=== PATIENT | male | born 1955 | race Caucasian/White ===

== ENCOUNTER → 2019-08-13 08:13 | Outpatient (CLI) | payer OTHER, SELFPAY ==
[2019-08-13 10:17] LABS: Hematocrit 46.3 % (40-54); Hemoglobin 15.7 g/dL (13.0-16.5); Mean Corp Hgb Conc 33.9 g/dL (32-36); Mean Corpuscular Hgb 31.4 pg (27.0-32.0); Mean Corpuscular Volume 92.6 fL (80-94); Mean Platelet Vol. 10.8 fl (6.2-12.0); Platelet Count 268 K/mm3 (150-450); RBC Distribution Width CV 12.2 % (11.6-14.6); RBC Distribution Width SD 41.2 fl (35.1-43.9); White Blood Count 7.2 K/mm3 (4.4-11.0)
[2019-08-13 10:35] LABS: AST(SGOT) 18 U/L (15-37); Alanine Aminotransfer ALT/SGPT 28 U/L (16-61); Albumin, Serum 4.2 g/dL (3.2-5.0); Alkaline Phosphatase 51 U/L (45-117); Anion Gap 8 (5-15); BUN 15 mg/dL (7-18); BUN/Creat Ratio 13.8 RATIO (10-20); Bilirubin, Direct 0.16 mg/dL (0.00-0.30); Calcium,Total 8.9 mg/dL (8.5-10.1); Chloride 101 mmol/L (98-107); Cholesterol 199 mg/dL (200); Creatinine, Serum 1.09 mg/dL (0.70-1.30); EST Glomerular Filtration Rate 72 mL/min (>60); Est Glom Filt Rate - Afr Amer 88 mL/min (>60); Globulin 3.3 g/dL (2.2-4.2); Glucose 101 mg/dL (74-106); High Density Lipoprotein 40 mg/dL; PSA,Total - Annual Screen 0.62 ng/mL (0.00-4.00); Potassium 3.9 mmol/L (3.5-5.1); Protein, Total 7.5 g/dL (6.4-8.2); Sodium Level 139 mmol/L (136-145); Triglycerides 220 mg/dL; Very Low Density Lipoprotein 44 mg/dL (5-40)
[2019-08-14 16:50] LABS: V-Zoster IgG (Immunity) 567 index (Immune >165)
== END ==
PROVIDERS: Family Provider Family Medicine; PCP Family Medicine; Referring Provider Family Medicine; Visit Provider Family Medicine
DX: Z00.00 Encounter for general adult medical examination without abnormal findings (principal); R63.5 Abnormal weight gain; Z13.220 Encounter for screening for lipoid disorders; Z13.1 Encounter for screening for diabetes mellitus; Z12.5 Encounter for screening for malignant neoplasm of prostate; Z78.9 Other specified health status
CPT/HCPCS: 36415; 80048; 80061; 80076; 84153; 84403; 85027; 86787; G0103

== ENCOUNTER → 2021-08-07 07:01 | Outpatient (CLI) | payer MEDICARE, OTHER, SELFPAY ==
[2021-08-07 09:56] LABS: Hemoglobin 15.4 g/dL (13.0-16.5); Mean Corpuscular Volume 91.5 fL (80-94); Mean Platelet Vol. 10.7 fl (6.2-12.0); Platelet Count 234 K/mm3 (150-450); RBC Distribution Width CV 11.9 % (11.6-14.6); RBC Distribution Width SD 40.6 fl (35.1-43.9); Red Blood Count 4.81 M/mm3 (4.6-6.2); White Blood Count 6.8 K/mm3 (4.4-11.0)
[2021-08-07 10:15] LABS: ALB/GLOB Ratio 1.2 RATIO (0.9-2.4); AST(SGOT) 17 U/L (15-37); Alanine Aminotransfer ALT/SGPT 22 U/L (16-61); Alkaline Phosphatase 51 U/L (45-117); Anion Gap 4 (5-15); BUN 17 mg/dL (7-18); BUN/Creat Ratio 16.5 RATIO (10-20); Calcium,Total 9.2 mg/dL (8.5-10.1); Chloride 104 mmol/L (98-107); Cholesterol 201 mg/dL (200); Creatinine, Serum 1.03 mg/dL (0.70-1.30); EST Glomerular Filtration Rate 77 mL/min (>60); Est Glom Filt Rate - Afr Amer 93 mL/min (>60); Globulin 3.4 g/dL (2.2-4.2); Glucose 96 mg/dL (74-106); High Density Lipoprotein 42 mg/dL; Magnesium 2.5 mg/dL (1.6-2.6); PSA,Total - Annual Screen 0.66 ng/mL (0.00-4.00); Potassium 3.8 mmol/L (3.5-5.1); Protein, Total 7.4 g/dL (6.4-8.2); Sodium Level 139 mmol/L (136-145); Thyroid Stim Hormone (TSH) 3.53 uIU/mL (0.358-3.74); Triglycerides 179 mg/dL; Very Low Density Lipoprotein 36 mg/dL (5-40); Vitamin B12 527 pg/mL (211-911); Vitamin D,25 Hydroxy 25.5 ng/mL
[2021-08-07 11:04] LABS: Erythrocyte Sedimentation Rate 2 mm/hr (0-20)
== END ==
PROVIDERS: PCP Family Medicine; Referring Provider Family Medicine; Visit Provider Family Medicine
DX: R20.2 Paresthesia of skin (principal); R03.0 Elevated blood-pressure reading, without diagnosis of hypertension; K76.89 Other specified diseases of liver; Z12.5 Encounter for screening for malignant neoplasm of prostate; Z13.220 Encounter for screening for lipoid disorders
CPT/HCPCS: 36415; 80053; 80061; 82306; 82607; 83735; 84153; 84443; 85027; 85652; G0103

== ENCOUNTER 2021-10-09 09:55 | Outpatient (CLI) | payer MEDICARE, OTHER, SELFPAY ==
--- NOTE | 2021-10-09 | LES_PTH ---
PATIENT: CHAPINCITO YU LOC: [facility] U#:[id number] AGE/SX: 65/M ROOM: RE10/09/[address]: Dr. Zeny Patel MD : 1955 BED: DIS: 10/09/2021 SPEC #: [id number] RECD: 10/09/21 12:54 STATUS: EDWIN GENESIS #: [id number] DOYLE: 10/09/21 00:[address]: Zeny Patel DEPT: SURGICAL PATHOLOGY RECD BY: Deacon Oviedo ENTERED: 10/09/21 12:54 SP TYPE: Lesion OTHR DR: Dr. 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 Negative for malignancy. See comment. DMITRY:marc 10/10/2021 COMMENT Clinical correlation and appropriate follow up are necessary. MICROSCOPIC DESCRIPTION Slides are reviewed. GROSS DESCRIPTION Received in fixative is one container labeled with the patient's name and designated upper lid. The specimen consists of an irregular piece of fabian-white skin measuring 0.6 x 0.4 x 0.1 cm. A few hairs are also noted. The entire specimen is submitted in one cassette. / DMITRY:marc 10/09/21 TC:1 CPT: 28951
== END 2021-10-09 23:59 | disposition short-term general hospital (02) ==
LOC: LABSPEC 10:00
PROVIDERS: PCP Family Medicine; Visit Provider Family Medicine
DX: D23.111 Other benign neoplasm of skin of right upper eyelid, including canthus (principal)
CPT/HCPCS: 88305

== ENCOUNTER → 2024-08-03 | Outpatient (CLI) | payer MEDICARE, OTHER, SELFPAY ==
[2024-08-03 10:13] LABS: Hematocrit 45.3 % (40-54); Hemoglobin 15.3 g/dL (13.0-16.5); Mean Corp Hgb Conc 33.8 g/dL (32-36); Mean Corpuscular Hgb 30.8 pg (27.0-32.0); Mean Corpuscular Volume 91.3 fL (80-94); Mean Platelet Vol. 11.2 fl (6.2-12.0); Platelet Count 237 K/mm3 (150-450); RBC Distribution Width CV 12.2 % (11.6-14.6); RBC Distribution Width SD 41.1 fl (35.1-43.9); Red Blood Count 4.96 M/mm3 (4.6-6.2); White Blood Count 7.2 K/mm3 (4.4-11.0)
[2024-08-03 10:27] LABS: Vitamin B12 453 pg/mL (211-911); Vitamin D,25 Hydroxy 25.2 ng/mL
[2024-08-03 11:11] LABS: ALB/GLOB Ratio 1.4 RATIO (0.9-2.4); AST(SGOT) 18 U/L (15-37); Alanine Aminotransfer ALT/SGPT 25 U/L (16-61); Albumin, Serum 4.2 g/dL (3.2-5.0); Alkaline Phosphatase 54 U/L (45-117); Anion Gap 9 (5-15); BUN 17 mg/dL (7-18); BUN/Creat Ratio 16.3 RATIO (10-20); Calcium,Total 9.2 mg/dL (8.5-10.1); Chloride 105 mmol/L (98-107); Cholesterol 192 mg/dL (200); Creatinine, Serum 1.04 mg/dL (0.70-1.30); EST Glomerular Filtration Rate 75 mL/min (>60); Est Glom Filt Rate - Afr Amer 91 mL/min (>60); Glucose 99 mg/dL (74-106); High Density Lipoprotein 44 mg/dL; PSA,Total - Annual Screen 0.71 ng/mL (0.00-4.00); Potassium 3.9 mmol/L (3.5-5.1); Protein, Total 7.2 g/dL (6.4-8.2); Sodium Level 140 mmol/L (136-145); Triglycerides 150 mg/dL; Very Low Density Lipoprotein 30 mg/dL (5-40)
[2024-08-03 11:39] LABS: Hemoglobin A1c 5.3 % (3.8-5.6)
== END | disposition home or self-care (01) ==
PROVIDERS: PCP Family Medicine; Referring Provider Family Medicine; Visit Provider Family Medicine
DX: Z13.220 Encounter for screening for lipoid disorders (principal); Z13.1 Encounter for screening for diabetes mellitus; Z13.21 Encounter for screening for nutritional disorder; Z12.5 Encounter for screening for malignant neoplasm of prostate; K76.89 Other specified diseases of liver
CPT/HCPCS: 36415; 80053; 80061; 82306; 82607; 83036; 84153; 84403; 85027; G0103

== ENCOUNTER → 2024-09-19 | Outpatient (CLI) | payer MEDICARE, OTHER, SELFPAY ==
--- NOTE | 2024-09-19 07:48 | US_ITS ---
STUDY: ABDOMINAL ULTRASOUND - RIGHT UPPER QUADRANT REASON FOR VISIT: Male, 68 years old fu liver cyst. done at [facility] TECHNIQUE: Ultrasound evaluation of the right upper quadrant was performed with real-time and static maloney-scale imaging. TECHNICAL QUALITY: Limited. Examination limited by bowel gas. COMPARISON: None. FINDINGS: Liver: The liver measures 19.1 cm. There is increased echogenicity consistent with fatty infiltration. The bile ducts are within normal limits. There is hepatic color flow. The direction of portal flow is hepatopetal. Extensive and innumerable liver cysts with the 3 largest measuring as much as 3.0, 3.3, and 4.8 cm. Many of these are irregular and some appear to have a thickened wall. These are not all simple cysts. CT with contrast is recommended. Gallbladder: Normal distended gallbladder. The gallbladder wall measures 2.9 mm. There is a negative sonographic Hughes''s sign. There is no pericholecystic fluid. There are no gallstones. Small 5 mm polyp. Common Bile Duct (C.B.D.): The common bile duct measures 4 mm. Pancreas: Normal size of the head, body and tail of the pancreas. There is normal echogenicity of the pancreas. There is no demonstrated pancreatic mass or cyst. Right Kidney: Normal size of the right kidney. The right kidney measures 11.0 cm. Normal renal cortex. The right cortex measures 2.1 cm. There is no demonstrated renal mass or cyst. There is no right hydronephrosis. US/Abdomen Limited IMPRESSION: Extensive cysts throughout the liver some of which are highly irregular and appear to have a thickened wall and some possibly have some internal echoes. CT with contrast is recommended. Small gallbladder polyp. Electronically Signed: Danielito Dietrich MD at 18:56 EST ,
== END | disposition home or self-care (01) ==
LOC: US 07:47
PROVIDERS: PCP Family Medicine; Referring Provider Family Medicine; Visit Provider Family Medicine
DX: K76.89 Other specified diseases of liver (principal)
CPT/HCPCS: 76705

== ENCOUNTER → 2024-10-15 | Outpatient (CLI) | payer MEDICARE, OTHER, SELFPAY ==
--- NOTE | 2024-10-15 07:54 | CT_ITS ---
STUDY: CT ABDOMEN WITH CONTRAST REASON FOR EXAM: Male, 68 years old. Multiple cyst on US RADIATION DOSAGE (If Supplied By Facility): CTDIvol = ( 17.01 ) mGy, DLP = ( 1490.19 ) mGycm TECHNIQUE: Transaxial images were obtained post I.V. administration of IV 100mL Isovue-300, and oral contrast. Sagittal and coronal images were reconstructed. Individualized dose optimization techniques were used for this CT. COMPARISON: None. FINDINGS: Minimal increased irregular markings in the medial aspect of the right lower lobe suggestive of scarring. The visualized portions of the heart are within normal limits. Multiple cysts are seen throughout the left and right lobes of the liver corresponding to the sonographic findings. Tiny gallstone in the dependent portion of the gallbladder lumen. Normal spleen. Normal pancreas. Normal bilateral adrenal glands. Normal right kidney. There are nonobstructive left intrarenal calculi. The largest measures 6.1 mm and is in the mid pole calyx. Normal visualized stomach. Normal small intestine. Normal colon. The appendix is visualized and appears normal. There is diffuse atherosclerotic calcification of the abdominal aorta and its major visceral branches, without a demonstrated aneurysm. Normal inferior vena cava. Normal retroperitoneum. Mild increased markings are seen in the root of the mesenteric fat suggestive of possible mesenteritis. Normal abdominal wall. Normal osseous structures. CT/Abdomen WITH IV Contrast IMPRESSION: Multiple hepatic cysts. Tiny solitary gallstone along the dependent portion of the gallbladder lumen. Nonobstructive left intrarenal calculi. Increased markings in the mesenteric fat in the root of the mesentery suggestive of possible mesenteritis. This is nonspecific. Electronically Signed: Kash Galarza MD at 11:58 EST ,
== END | disposition home or self-care (01) ==
LOC: CT 07:51
PROVIDERS: PCP Family Medicine; Referring Provider Family Medicine; Visit Provider Family Medicine
DX: K76.89 Other specified diseases of liver (principal)

== ENCOUNTER 2025-07-15 07:01 | Outpatient (CLI) | payer MEDICARE, OTHER, SELFPAY ==
[2025-07-15 13:14] LABS: AST(SGOT) 21 U/L (<=37); Alanine Aminotransfer ALT/SGPT 16 U/L (<=46); Albumin, Serum 4.7 g/dL (3.4-4.8); Alkaline Phosphatase 52 U/L (40-129); Anion Gap 11 (5-15); BUN 17 mg/dL (4-19); BUN/Creat Ratio 16.6 RATIO (10-20); Calcium,Total 9.8 mg/dL (7.6-11.0); Carbon Dioxide 26.1 mmol/L (21.0-32.0); Chloride 103 mmol/L (98-108); Globulin 2.4 g/dL (2.2-4.2); Glucose 98 mg/dL (70-99); Magnesium 2.2 mg/dL (1.5-2.2); Potassium 4.0 mmol/L (3.3-5.1); Vitamin D,25 Hydroxy 26.4 ng/mL (30-100)
== END 2025-07-15 23:59 | disposition home or self-care (01) ==
PROVIDERS: PCP Family Medicine; Referring Provider Family Medicine; Visit Provider Family Medicine
DX: I10 Essential (primary) hypertension (principal); R93.1 Abnormal findings on diagnostic imaging of heart and coronary circulation
CPT/HCPCS: 36415; 80053; 82306; 83735

== ENCOUNTER → 2025-08-11 | Outpatient (CLI) | payer MEDICARE, OTHER, SELFPAY ==
--- OUTSIDE RECORDS SUMMARY | 2025-08-10 07:24 | XMS RPT_ITS | CCD ---
Author Organization [facility] Care Team Providers Care Fig Washer Name Role Phone Edil Trevino MD Unavailable [phone] Edil Trevino Primary Care Unavailable Edil Trevino Attending Unavailable Belinda, Edil Referring Unavailable Ranautumn, Edil Referring Unavailable Ranautumn, Edil Primary Care Unavailable Belinda, Edil Attending Unavailable Belinda, Edil Referring Unavailable Belinda, Edil Primary Care Unavailable Belinda, Edil Attending Unavailable Belinda, Edil Primary Care Unavailable Edil Trevino Attending Unavailable Belinda, Edil Referring Unavailable Belinda, Christophtera Primary Care Unavailable Belinda, Edil Attending Unavailable Belinda, Edil Referring Unavailable ALEKSANDER GUEVARA Attending Unavailable EDIL TREVINO Referring Unavailabl e ALEKSANDER GUEVARA Referring Unavailable Problems Problem Classification Problem Date Documented Date Episodic/Chronic Biliary tract disease (1 source) Calculus of gallbladder without cholecystitis without obstruction; Translations: [Calculus of gallbladder without cholecystitis without obstruction] Onset: 07-06-2025 Episodic Digestive congenital anomalies (3 sources) Congenital cystic disease of liver; Translations: [Cystic disease of liver] Onset: 07-06-2025 05-10-2025 Chronic Essential hypertension (1 source) Essential (primary) hypertension; Translations: [Essential (primary) hypertension] Onset: 07-27-2025 Chronic Other liver diseases (1 source) Other specified diseases of liver; Translations: [Other specified diseases of liver] Onset: 11-04-2024 Chronic Other liver diseases (1 source) Fatty (change of) liver, not elsewhere classified; Translations: [Hepatic steatosis] Onset: 07-06-2025 Chronic Other screening for suspected conditions (not mental disorders or infectious disease) (2 sources) Abnormal findings on diagnostic imaging of heart and coronary circulation; Translations: [Encounter for screening for lipoid disorders] Onset: 08-23-2024 Episodic Peripheral and visceral atherosclerosis (1 source) Atherosclerosis of aorta; Translations: [Atherosclerosis of aorta] Onset: 07-02-2025 Chronic Results Test Name Value Interpretation Reference Range Adam Garza 07-27-2025 CNPN Telephone (GASTA5) CHAPINCITO YU ([id number]) 1955 M Date Time Provider Department 07/27/25 ALEKSANDER GUEVARA GASTA5 During your visit today, we recorded the following information about you: Wendy Russo LPN 07/27/2025 10:02 AM Signed 07/22/25 8:[address] Guevara, Confirming the radiologist has reviewed the CT Scan, and to discuss the findings and the blood tests. Thanks, Chapincito Russo LPN July 27, 2025 Aleksander Guevara MD 07/30/2025 1:35 PM Signed Kris, Please let him know: F radiologist over read: IMPRESSION: Multiple fluid attenuating hepatic cysts without concerning features. These may be multiple simple liver cysts are within the spectrum of polycystic liver disease. No suspicious solid hepatic mass. I am glad to provide this very favorable report. MD Kayley Thacker Osas, RN 07/30/2025 2:58 PM Signed Patient updated Kris Zaldivar RN Allergies As of Date: 07/27/2025 (No Known Allergies) Date Reviewed: 07/06/2025 Reviewed by: Perez Justice LPN - Fully Assessed Reason for Visit: Results [95] Problem List As Of Date: 07/27/2025 (None) Encounter Status:Closed by KRIS ZALDIVAR on 07/30/25 Normal [facility] [id number] 07-20-2025 [facility] Misc. COMMENT Normal . [facility] Comment on above: Order Comment: Order Date: 07/30/24 Order Info: 0786-1 - CMP Order Info: [id number] - LIPID Order Info: [id number]- - PSA Result Comment: Test Ordered: [id number] Apolipoprotein A-1 Apolipoprotein A-1 116 mg/dL Reference Range: 101-178 Performed at: BN - [facility] [address] [id number] Internet Project Manager: Ester Biggs MD, Phone: [phone] Performed at: - [facility] [address] [id number] Internet Project Manager: Fredy Hummel PhD, Phone: [phone] Performed By: #### L 500.4050, L501.9910, L500.4100 #### [facility] [address] [place], [address] Comprehensive Metabolic Prof ilon 07-15-2025 Albumin [Mass/Vol] 4.7 g/dL Normal 3.4-4.8 [facility] Comment on above: Order Comment: Order Date: 07/30/24 Order Info: 0786 - CMP Order Info: [id number] - LIPID Order Info: [id number] - PSA Performed By: #### L 500.4050, L501.9910, L500.4100 #### [facility] [address] [place], [address] Albumin/Globulin [Mass ratio] 2.0 {ratio} Normal 0.9-2.4 [facility] Comment on above: Order Comment: Order Date: 07/30/24 Order Info: 0786- - CMP Order Info: [id number] - LIPID Order Info: [id number] - PSA Performed By: #### L 500.4050, L501.9910, L500.4100 #### [facility] [address] [place], [address] ALK PHOS 52 U/L Normal 40-129 [facility] Comment on above: Order Comment: Order Date: 07/30/24 Order Info: 0786- - CMP Order Info: - LIPID Order Info: [id number] - PSA Performed By: #### L 500.4050, L501.9910, L500.4100 #### [facility] [address] [place], [address] ALT [Catalytic activity/Vol] 16 U/L Normal <=46 [facility] Comment on above: Order Comment: Order Date: 07/30/24 Order Info: 785- - CMP Order Info: - LIPID Order Info: [id number] - PSA Performed By: #### L 500.4050, L501.9910, L500.4100 #### [facility] [address] [place], [address] AST [Catalytic activity/Vol] 21 U/L Normal <=37 [facility] Comment on above: Order Comment: Order Date: 07/30/24 Order Info: [id number] - CMP Order Info: - LIPID Order Info: [id number] - PSA Performed By: #### L 500.4050, L501.9910, L500.4100 #### [facility] [address] [place], [address] Bilirubin [Mass/Vol] 0.76 mg/dL Normal 0.00-1.30 [facility] Comment on above: Order Comment: Order Date: 07/30/24 Order Info: 785-09 - CMP Order Info: - LIPID Order Info: [id number] - PSA Performed By: #### L 500.4050, L501.9910, L500.4100 #### [facility] [address] [place], [address] BUN/CRE 16.6 RATIO Normal 10-20 [facility] Comment on above: Order Comment: Order Date: 07/30/24 Order Info: 86-1 - CMP Order Info: - LIPID Order Info: [id number]- - PSA Performed By: #### L 500.4050, L501.9910, L500.4100 #### [facility] [address] [place], [address] Calcium [Mass/Vol] 9.8 mg/dL Normal 7.6-11.0 [facility] Comment on above: Order Comment: Order Date: 07/30/24 Order Info: 785-09 - CMP Order Info: - LIPID Order Info: [id number] - PSA Performed By: #### L 500.4050, L501.9910, L500.4100 #### [facility] [address] [place], [address] Chloride [Moles/Vol] 103 mmol/L Normal 98-108 [facility] Comment on above: Order Comment: Order Date: 07/30/24 Order Info: 785-09 - CMP Order Info: - LIPID Order Info: [id number] - PSA Performed By: #### L 500.4050, L501.9910, L500.4100 #### [facility] [address] [place], [address] CO2 [Moles/Vol] 26.1 mmol/L Normal 21.0-32.0 [facility] Comment on above: Order Comment: Order Date: 07/30/24 Order Info: 785-09 - CMP Order Info: - LIPID Order Info: [id number] - PSA Performed By: #### L 500.4050, L501.9910, L500.4100 #### [facility] [address] [place], [address] Creatinine [Mass/Vol] 1.00 mg/dL Normal 0.70-1.20 [facility] Comment on above: Order Comment: Order Date: 07/30/24 Order Info: 785-09 - CMP Order Info: - LIPID Order Info: [id number] - PSA Performed By: #### L 500.4050, L501.9910, L500.4100 #### [facility] [address] [place], [address] GAP 11 Normal 5-15 [facility] Comment on above: Order Comment: Order Date: 07/30/24 Order Info: 785-09 - CMP Order Info: - LIPID Order Info: [id number] - PSA Performed By: #### L 500.4050, L501.9910, L500.4100 #### [facility] [address] [place], [address] GFR/1.73 sq M.predicted among non-blacks MDRD (S/P/Bld) [Vol rate/Area] 81 mL/min/{1.73_m2} Normal >60 [facility] Comment on above: Order Comment: Order Date: 07/30/24 Order Info: 785-09 - CMP Order Info: - LIPID Order Info: [id number] - PSA Result Comment: mL/m in/1.73m2 CKD-EPI Creatinine Equation (2020) Performed By: #### L 500.4050, L501.9910, L500.4100 #### [facility] [address] [place], [address] Globulin (S) [Mass/Vol] 2.4 g/dL Normal 2.2-4.2 [facility] Comment on above: Order Comment: Order Date: 07/30/24 Order Info: 785-09 - CMP Order Info: - LIPID Order Info: [id number] - PSA Performed By: #### L 500.4050, L501.9910, L500.4100 #### [facility] [address] [place], [address] Glucose [Mass/Vol] 98 mg/dL Normal 70-99 [facility] Comment on above: Order Comment: Order Date: 07/30/24 Order Info: 785-09 - CMP Order Info: - LIPID Order Info: [id number] - PSA Performed By: #### L 500.4050, L501.9910, L500.4100 #### [facility] [address] [place], [address] Potassium [Moles/Vol] 4.0 mmol/L Normal 3.3-5.1 [facility] Comment on above: Order Comment: Order Date: 07/30/24 Order Info: 785-09 - CMP Order Info: [id number] - LIPID Order Info: 285-1 - PSA Performed By: #### L 500.4050, L501.9910, L500.4100 #### [facility] [address] [place], [address] Sodium [Moles/Vol] 139 mmol/L Normal 133-145 [facility] Comment on above: Order Comment: Order Date: 07/30/24 Order Info: 785-09 - CMP Order Info: - LIPID Order Info: [id number] - PSA Performed By: #### L 500.4050, L501.9910, L500.4100 #### [facility] [address] [place], [address] T PROT 7.0 g/dL Normal 5.9-8.4 [facility] Comment on above: Order Comment: Order Date: 07/30/24 Order Info: 785-09 - CMP Order Info: - LIPID Order Info: [id number] - PSA Performed By: #### L 500.4050, L501.9910, L500.4100 #### [facility] [address] [place], [address] Urea nitrogen [Mass/Vol] 17 mg/dL Normal 4-19 [facility] Comment on above: Order Comment: Order Date: 07/30/24 Order Info: 785-09 - CMP Order Info: [id number] - LIPID Order Info: [id number] - PSA Performed By: #### L 500.4050, L501.9910, L500.4100 #### [facility] [address] [place], [address] Magnesiumon 07-15-2025 Magnesium [Mass/Vol] 2.2 mg/dL Normal 1.5-2.2 [facility] Comment on above: Order Comment: Order Date: 07/30/24 Order Info: 0786-1 - CMP Order Info: [id number] - LIPID Order Info: [id number] - PSA Performed By: #### L 500.4050, L501.9910, L500.4100 #### [facility] [address] [place], [address] NMR Lipoprofileon 07-15-2025 CHOL TOTAL Normal [facility] Comment on above: Order Comment: Order Date: 07/13/25 Order Info: 0842- - NMRLIP Result Comment: CAN NOT DO TEST DUE TO [facility] Performed By: #### L 3500.0000 #### [facility] [address] [place], [address] HDL-C Normal [facility] Comment on above: Order Comment: Order Date: 07/13/25 Order Info: 0842-1 - NMRLIP Result Comment: CAN NOT DO TEST DUE TO [facility] Performed By: #### L 3500.0000 #### [facility] [address] [place], [address] HDL-P TOTAL Normal [facility] Comment on above: Order Comment: Order Date: 07/13/25 Order Info: 0842-1 - NMRLIP Result Comment: CAN NOT DO TEST DUE TO [facility] Performed By: #### L 3500.0000 #### [facility] [address] [place], [address] INS. RES. SCORE Normal [facility] Comment on above: Order Comment: Order Date: 07/13/25 Order Info: 0842-1 - NMRLIP Result Comment: CAN NOT DO TEST DUE TO [facility] Performed By: #### L 3500.0000 #### [facility] [address] [place], [address] LDL SIZE Normal [facility] Comment on above: Order Comment: Order Date: 07/13/25 Order Info: 0842-1 - NMRLIP Result Comment: CAN NOT DO TEST DUE TO [facility] Performed By: #### L 3500.0000 #### [facility] [address] [place], [address] LDL-C (NIH CALC Normal [facility] Comment on above: Order Comment: Order Date: 07/13/25 Order Info: 0842-1 - NMRLIP Result Comment: CAN NOT DO TEST DUE TO [facility] Performed By: #### L 3500.0000 #### [facility] [address] [place], [address] LDL-P Normal [facility] Comment on above: Order Comment: Order Date: 07/13/25 Order Info: 0842-1 - NMRLIP Result Comment: CAN NOT DO TEST DUE TO [facility] Performed By: #### L 3500.0000 #### [facility] [address] [place], [address] SMALL LDL-P Normal [facility] Comment on above: Order Comment: Order Date: 07/13/25 Order Info: 0842-1 - NMRLIP Result Comment: CAN NOT DO TEST DUE TO [facility] Performed By: #### L 3500.0000 #### [facility] [address] [place], [address] TRIGLYCERIDES Normal [facility] Comment on above: Order Comment: Order Date: 07/13/25 Order Info: 0842-1 - NMRLIP Result Comment: CAN NOT DO TEST DUE TO [facility] Performed By: #### L 3500.0000 #### [facility] [address] [place], [address] Vitamin D,25 Hydroxyon 07-15 Vitamin D 25-OH 26.4 ng/mL Low 30-100 [facility] Comment on above: Order Comment: Order Date: 07/30/24 Order Info: 0786-1 - CMP Order Info: [id number] - LIPID Order Info: 2857-1 - PSA Result Comment: Skyla min D Status Deficiency: <20 ng/mL (50nmol/L) Insufficiency: 20-30 ng/mL (50-75 nmol/L) Sufficiency: 30-100 ng/mL (75-250 nmol/L) Toxicity: >100 ng/mL (>250 nmol/L) Performed By: #### L 500.4050, L501.9910, L500.4100 #### [facility] [place], [address] [facility] 07-07-2025 CNPN Telephone (GASTA5) CHAPINCITO YU ([id number]) 1955 M Date Time Provider Department 07/07/25 ALEKSANDER GUEVARA GASTA5 During your visit today, we recorded the following information about you: Kris Zaldivar RN 07/07/2025 8:41 AM Signed Provided Rosalba ALVARADO w/ CT scan to upload into chart Nurse will input second read once images are available Kris Zaldivar RN July 07, 2025 8:40 AM Kris Zaldivar RN 07/07/2025 2:55 PM Signed Second read order for CT inputted Kris Zaldivar RN July 07, 2025 2:55 PM Kris Zaldivar RN 07/28/2025 12:03 PM Signed Pt sent the following mcm: Dr. Guevara, Confirming the radiologist has reviewed the CT Scan, and to discuss the findings and the blood tests. 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 - Other [5822] Problem List As Of Date: 07/07/2025 (None) Encounter Status:Closed by KRIS ZALDIVAR on 07/07/25 Normal [facility] CBC panel Auto (Bld)on 07-06 Erythrocyte distribution width (RBC) [Ratio] 12.3 % Normal 11.5-15.0 [facility] Comment on above: Order Comment: Speci men Type: BLOOD SPECIMEN Ordering Facility: [facility] Address: [address] [place] [address] Performed By: #### 5 8410-2 #### [facility] CLIA [id number] [address] [place] [address] [place] Hematocrit (Bld) [Volume fraction] 45.0 % Normal 39.0-51.0 [facility] Comment on above: Order Comment: Speci men Type: BLOOD SPECIMEN Ordering Facility: [facility] Address: [address] [place] [address] Performed By: #### 5 8410-2 #### [facility] CLIA [id number] [address] [place] [address] [place] Hemoglobin (Bld) [Mass/Vol] 15.7 g/dL Normal 13.0-17.0 [facility] Comment on above: Order Comment: Speci men Type: BLOOD SPECIMEN Ordering Facility: [facility] Address: [address] [place] [address] Performed By: #### 5 8410-2 #### [facility] CLIA [id number] [address] [place] [address] [place] MCH (RBC) [Entitic mass] 31.5 pg Normal 26.0-34.0 [facility] Comment on above: Order Comment: Speci men Type: BLOOD SPECIMEN Ordering Facility: [facility] Address: [address] [place] [address] Performed By: #### 5 8410-2 #### [facility] CLIA [id number] [address] [place], [place] [id number] [place] MCHC (RBC) [Mass/Vol] 34.9 g/dL Normal 30.5-36.0 [facility] Comment on above: Order Comment: Speci men Type: BLOOD SPECIMEN Ordering Facility: [facility] Address: [address] [place] [address] Performed By: #### 5 8410-2 #### [facility] CLIA [id number] [address] [place] [address] [place] MCV (RBC) [Entitic vol] 90.4 fL Normal 80.0-100.0 [facility] Comment on above: Order Comment: Speci men Type: BLOOD SPECIMEN Ordering Facility: [facility] Address: [address] [place] [address] Performed By: #### 5 8410-2 #### [facility] CLIA [id number] [address] [place] [address] [place] Nucleated RBC (Bld) [#/Vol] 10*3/uL Normal <0.01 [facility] Comment on above: Order Comment: Speci men Type: BLOOD SPECIMEN Ordering Facility: [facility] Address: [address] [place] [address] Performed By: #### 5 8410-2 #### [facility] CLIA [id number] [address] [place] [address] [place] Platelet mean volume (Bld) [Entitic vol] 11.3 fL Normal 9.0-12.7 [facility] Comment on above: Order Comment: Speci men Type: BLOOD SPECIMEN Ordering Facility: [facility] Address: [address] [place] [address] Performed By: #### 5 8410-2 #### [facility] CLIA [id number] [address] [place] [address] [place] Platelets (Bld) [#/Vol] 235 10*3/uL Normal 150-400 [facility] Comment on above: Order Comment: Speci men Type: BLOOD SPECIMEN Ordering Facility: [facility] Address: [address] [place] [address] Performed By: #### 5 8410-2 #### [facility] CLIA [id number] [address] [place] [address] [place] RBC (Bld) [#/Vol] 4.98 10*6/uL Normal 4.20-6.00 [facility] Comment on above: Order Comment: Speci men Type: BLOOD SPECIMEN Ordering Facility: [facility] Address: [address] [place] [address] Performed By: #### 5 8410-2 #### [facility] CLIA [id number] [address] [place] [address] [place] WBC (Bld) [#/Vol] 7.07 10*3/uL Normal 3.70-11.00 [facility] Comment on above: Order Comment: Speci men Type: BLOOD SPECIMEN Ordering Facility: [facility] Address: [address] [place] [address] Performed By: #### 5 8410-2 #### [facility] CLIA [id number] [address] [place] [address] [place] CNOVon 07-06-2025 CNOV Office Visit (GASTA5 ) CHAPINCITO YU ([id number]) 1955 M Date Time Provider Department 07/06/25 3:30 PM ALEKSANDER GUEVARA GASTA5 During your visit today, we recorded the following information about you: Pulse Blood pressure Weight Height 102/minute 163/76 87 kg 1.803 m Aleksander Guevara MD 07/06/2025 4:03 PM Addendum It was nice to meet you today We discussed your liver cysts: - By CT report The cysts in your liver are benign and not a cause for concern. This is a common finding and does not require treatment or regular monitoring unless symptoms develop. - Your liver is not enlarged, and your liver function tests have been angela (in 2023)l, which is reassuring. - A gallstone was described on CT scan - some fat was described on ultrasound a year ago. You have since lost weight which is treatment for fatty liver - There is no need for routine imaging or follow-up unless you develop symptoms such as abdominal pain, significant bloating, or other concerning changes. If this occurs, please contact me. We discussed your liver health and alcohol use: - Alcohol does not affect liver cysts, but for overall liver health, less alcohol is better. I recommend limiting your alcohol intake to 3-4 drinks per month. - We will perform liver enzyme tests today to confirm that your liver function remains normal. We discussed the findings on your imaging: - I will have our radiologist review your CT scan for further confirmation. - Your kidneys are not involved with cysts, and the nonobstructive kidney stone noted on imaging does not require treatment at this time. Next steps: - Please complete the blood tests ordered today, including liver enzyme tests. - Check in with me via [email or web address] in 7-10 days to confirm that the radiologist has reviewed your CT scan and to discuss your blood test results. - There is no need for additional imaging unless new symptoms arise. If you have any questions or concerns, please reach out through [employer]. Aleksander Guevara MD 07/06/2025 4:58 PM Signed What is the future like in light of liver cysts? The patient is a 69-year-old male presenting for initial evaluation of multiple hepatic cysts and steatotic liver disease, incidentally discovered on imaging. He first became aware of liver cysts in 2019 after a screening scan in [place], which noted ?some cysts? on the liver. He deferred further imaging at that time. In 2023, an abdominal ultrasound revealed extensive, innumerable hepatic cysts and increased echogenicity consistent with steatotic liver disease. A CT scan on 10/15/2024 confirmed multiple hepatic cysts, a tiny gallstone, and a nonobstructive left intrarenal calculus. The spleen and pancreas were normal, and no renal cysts were identified. He reports that his liver enzymes have been normal on serial testing since 2002, most recently in 07/2024. He reports a 20 lb weight loss over the summer through increased walking and exercise, with a goal to lose an additional 10 lbs. He drinks alcohol 3-10 days per month, typically 1 bourbon per occasion, and occasionally wine. He is willing to stop drinking if medically necessary. He denies any other medical problems beyond the liver cysts and recent elevated blood pressure readings, which he plans to address with his PCP in July. Family history is notable for liver cysts in both a brother and a sister, discovered 15 years ago, with no known kidney cysts. His mother had a benign renal tumor. He is retired, enjoys travel, and is active with his grandchildren. - (10/15/2024) CT Abdomen: - Liver: Multiple cysts throughout. - Gallbladder: Tiny gallstone in the dependent portion. - Spleen: Normal. - Pancreas: Normal. - Kidneys: No renal cysts; nonobstructive left intrarenal calculus. - (08/03/2024) - CMP: Within normal limits. - Platelet count: Within normal limits. - Abdominal Ultrasound: Increased echogenicity consistent with hepatic steatosis; extensive and innumerable hepatic cysts. PAST MEDICAL HISTORY Diagnosis Date ALLERGIC RHINITIS NOS UNILAT INGUINAL HERNIA PAST SURGICAL HISTORY Procedure Laterality Date REMOVAL OF TONSILS,<12 Y/O 1975 Tonsillectomy REPAIR SLIDING INGUINAL HERNIA 08/16/08 [facility] REPAIR UMBILICAL RALPH,5+Y/O,REDUC 2006 Hernia repair, umbilical >5yr No current outpatient medications on file. No current facility-administered medications for this visit. Exam: BP 163/76 (BP Site: Left Arm, BP Position: Sitting, BP Cuff Size: Regular Adult) Pulse 102 Ht 180.3 cm (5' 11) Wt 87 kg (191 lb 12.8 oz) SpO2 95% BMI 26.75 kg/m? HEENT: neg abd: no hepatomegaly extrem: no edema neuro: no AMS Impression and Plan: 1. Cystic disease of liver (Q44.6) Extensive, innumerable hepatic cysts noted on imaging; liver size normal on exam and imaging. No evidence of hepatic or renal cy (more content not included)... Normal [facility] Comprehensive metabolic 2000 panelon 07-06-2025 Albumin [Mass/Vol] 4.8 g/dL Normal 3.9-4.9 [facility] Comment on above: Order Comment: Speci men Type: BLOOD SPECIMEN Ordering Facility: [facility] Address: [address] [place] [address] Performed By: #### 2 4323-8 #### [facility] CLIA [id number] [address] [place] [address] [place] ALP [Catalytic activity/Vol] 55 U/L Normal 38-113 [facility] Comment on above: Order Comment: Speci men Type: BLOOD SPECIMEN Ordering Facility: [facility] Address: [address] [place] [address] Performed By: #### 2 4323-8 #### [facility] CLIA [id number] [address] [place] [address] [place] ALT [Catalytic activity/Vol] 14 U/L Normal 10-54 [facility] Comment on above: Order Comment: Speci men Type: BLOOD SPECIMEN Ordering Facility: [facility] Address: [address] [place] [address] Performed By: #### 2 4323-8 #### [facility] CLIA [id number] [address] [place] [address] [place] Anion gap [Moles/Vol] 13 mmol/L Normal 8-15 [facility] Comment on above: Order Comment: Speci men Type: BLOOD SPECIMEN Ordering Facility: [facility] Address: [address] [place] [address] Performed By: #### 2 4323-8 #### [facility] CLIA [id number] [address] [place] [address] [place] AST [Catalytic activity/Vol] 20 U/L Normal 14-40 [facility] Comment on above: Order Comment: Speci men Type: BLOOD SPECIMEN Ordering Facility: [facility] Address: [address] [place] [address] Performed By: #### 2 4323-8 #### [facility] CLIA [id number] [address] [place], [place] [address] [place] Bilirubin [Mass/Vol] 0.6 mg/dL Normal 0.2-1.3 [facility] Comment on above: Order Comment: Speci men Type: BLOOD SPECIMEN Ordering Facility: [facility] Address: [address] [place], [place] [address] Performed By: #### 2 4323-8 #### [facility] CLIA [id number] [address] [place], [place] [address] [place] Calcium [Mass/Vol] 10.0 mg/dL Normal 8.5-10.2 [facility] Comment on above: Order Comment: Speci men Type: BLOOD SPECIMEN Ordering Facility: [facility] Address: [address] [place] [address] Performed By: #### 2 4323-8 #### [facility] CLIA [id number] [address] [place], [place] [address] [place] Chloride [Moles/Vol] 104 mmol/L Normal 98-107 [facility] Comment on above: Order Comment: Speci men Type: BLOOD SPECIMEN Ordering Facility: [facility] Address: [address] [place], [place] [address] Performed By: #### 2 4323-8 #### [facility] CLIA [id number] [address] [place], [place] [address] [place] CO2 [Moles/Vol] 23 mmol/L Normal 22-30 [facility] Comment on above: Order Comment: Speci men Type: BLOOD SPECIMEN Ordering Facility: [facility] Address: [address] [place], [place] [address] Performed By: #### 2 4323-8 #### [facility] CLIA [id number] [address] [place] [address] [place] Creatinine [Mass/Vol] 0.98 mg/dL Normal 0.73-1.22 [facility] Comment on above: Order Comment: Sam arana Type: BLOOD SPECIMEN Ordering Facility: [facility] Address: [address] [place] [address] Performed By: #### 2 4323-8 #### [facility] CLIA [id number] [address] [place] [address] [place] eGFRcr SerPlBld CKD-EPI 2020 83 mL/min/1.73m??? Normal >=60 [facility] Comment on above: Order Comment: Sam arana Type: BLOOD SPECIMEN Ordering Facility: [facility] Address: [address] [place] [address] Result Comment: Bobbi mated Glomerular Filtration Rate (eGFR) is calculated using the 2020 CKD-EPI creatinine equation. This equation utilizes serum creatinine, sex, and age as parameters. The creatinine assay has traceable calibration to isotope dilution-mass spectrometry. Refer to KDIGO guidelines for clinical interpretation. In patients with unstable renal function, e.g. those with acute kidney injury, the eGFR may not accurately reflect actual GFR. Performed By: #### 2 4323-8 #### [facility] CLIA [id number] [address] [place] [address] [place] Glucose [Mass/Vol] 99 mg/dL Normal 74-99 [facility] Comment on above: Order Comment: Sam arana Type: BLOOD SPECIMEN Ordering Facility: [facility] Address: [address] [place] [address] Result Comment: The [place] Diabetes Association (ADA) provides guidance for cutoff values for fasting glucose and random glucose. The ADA defines fasting as no caloric intake for at least 8 hours. Fasting plasma glucose results between 100 to 125 mg/dL indicate increased risk for diabetes (prediabetes). Fasting plasma glucose results greater than or equal to 126 mg/dL meet the criteria for diagnosis of diabetes. In the absence of unequivocal hyperglycemia, results should be confirmed by repeat testing. In a patient with classic symptoms of hyperglycemia or hyperglycemic crisis, random plasma glucose results greater than or equal to 200 mg/dL meet the criteria for diagnosis of diabetes. Reference: Standards of Medical Care in Diabetes 2016, [place] [employer] Association. Diabetes Care. 2016.39(Suppl 1). Performed By: #### 2 4323-8 #### [facility] CLIA [id number] [address] [place] [address] [place] Potassium [Moles/Vol] 4.6 mmol/L Normal 3.7-5.1 [facility] Comment on above: Order Comment: Speci men Type: BLOOD SPECIMEN Ordering Facility: [facility] Address: [address] [place] [address] Performed By: #### 2 4323-8 #### [facility] CLIA [id number] [address] [place] [address] [place] Protein [Mass/Vol] 7.4 g/dL Normal 6.3-8.0 [facility] Comment on above: Order Comment: Speci men Type: BLOOD SPECIMEN Ordering Facility: [facility] Address: [address] [place] [address] Performed By: #### 2 4323-8 #### [facility] CLIA [id number] [address] [place] [address] [place] Sodium [Moles/Vol] 140 mmol/L Normal 136-144 [facility] Comment on above: Order Comment: Speci men Type: BLOOD SPECIMEN Ordering Facility: [facility] Address: [address] [place] [address] Performed By: #### 2 4323-8 #### [facility] CLIA [id number] [address] [place], [place] [address] [place] Urea nitrogen [Mass/Vol] 15 mg/dL Normal 9-24 [facility] Comment on above: Order Comment: Speci men Type: BLOOD SPECIMEN Ordering Facility: [facility] Address: [address] [place] [address] Performed By: #### 2 4323-8 #### [facility] CLIA [id number] [address] [place], [place] [address] [place] PT panel Coag (PPP)on 10-07- 2025 INR Coag (PPP) [Relative time] 1.0 {INR} Normal 0.9-1.3 [facility] Comment on above: Order Comment: Sam arana Type: BLOOD SPECIMEN Ordering Facility: [facility] Address: [address] [place], [place] [address] Result Comment: Skyla min K Antagonist (VKA) Therapeutic Range: INR 2 to 3 (Target INR of 2.5) Note: For patients treated with VKA drugs, such as warfarin, the [place] [employer] 2012 Guideline recommends a therapeutic INR range of 2 to 3 (target INR of 2.5). This recommendation includes high-risk patients with antiphospholipid syndrome with previous arterial or venous thromboembolism, current-generation mechanical or bioprosthetic aortic heart valve replacement. Note: Patients with mechanical aortic valve replacement and additional risk factors for thromboembolic events (atrial fibrillation, previous thromboembolism, LV dysfunction, hypercoagulable conditions) or an older generation mechanical AVR (i.e., ball in-Cage) or any mechanical MVR should have a INR therapeutic range of 2.5 to 3.5 (target INR of 3). Cindy GARCIA, et al. Chest 2012, 141:7S-47S Taco RA, et al. JACC 2017, 70: 252-289 Performed By: #### 3 4528-0 #### [facility] CLIA [id number] [address] [place] [address] [place] PT Coag (PPP) [Time] 11.0 s Normal 9.7-13.0 [facility] Comment on above: Order Comment: Sam arana Type: BLOOD SPECIMEN Ordering Facility: [facility] Address: [address] [place] [address] Performed By: #### 3 4528-0 #### [facility] CLIA [id number] [address] [place] [address] [place] Coronary Angiography CTon Coronary Angiography CT [facility] [address] [place] [address] 07/05/25 1034 MR#: [id number] Acct: [id number] Name: CHAPINCITO YU Rep #: [id number] : 1955 69 From: Enrique Binachi MD PCP: Dr. Edil Trevino MD Status:REG REF Y Location: CT Calcium Scoring Date of Study:: 07/02/25 Indications Indications: Screening Coronary Calcium Scoring: High-resolution Computed Tomographic imaging of the chest was performed on [07/02/2025], with particular attention paid to the coronary arteries. Images from the examination were analyzed for the presence and extent of coronary artery calcification , using coronary calcium quantification software. The patient tolerated the procedure well and there were no complications. The results of the coronary calcification analysis are provided below. Findings Coronary Artery Left Main (LM): 0 Left Anterior Descending (LAD): 251 Left Circumflex (LCX): 165 Right Coronary Artery (RCA): 56.9 Total Agatston Score: 472.9 Percentile Rankin-75 Calcium Scoring Interpretation: Different methods to categorize the overall amount of coronary plaque. Overall amount CAC SIS Visual of coronary plaque P1 Mild -100 <2 1-2 vessels with mild amount of plaque P2 Moderate 101-300 3-4 1-2 vessels with moderate amount, 3 vessels with mild amount of plaque P3 Severe 301-999 5-7 3 vessels with moderate amount, 1 vessel with severe amount of plaque P4 Extensive >1000 >8 2-3 vessels with severe amount of plaque Calcium Score: Severe: 3 vessels w/moderate amount, 1 vessel w/severe amt of plaque Conclusion: 3 vessels with moderate amount of plaque noted. 07/05/25 1038 Date Enrique Bianchi MD Cosigner Signature (if applicable): Date CC: Dr. Edil Trevino MD; Dr. Enrique Bianchi MD Signed Normal [facility] Limited Chest CT [facility] [place] [facility] 07-02-[address] Cardiac Only [facility] [address] [facility] [address] [facility] [place] [address] Cardiac Only MR#: [id number] Acct: [id number] Name: CHAPINCITO YU Rep #: [id number] : 1955 M 69 From: Erasmo Hinojosa PCP: Dr. Edil Trevino MD Status: REG REF Study: Limited Chest CT Cardiac Only Date of Exam: Exam# [id number] Ordering Dr: Edil Trevino PROCEDURE: LIMITED CHEST CT CARDIAC ONLY 07/02/2025 REASON FOR EXAM: ATHEROSCLEROSIS OF AORTA. Both parents with coronary artery disease history. TECHNIQUE: Procedure Code: CTCCTACHLIM Modality: CT Procedure: LIMITED CHEST CT CARDIAC ONLY One or more dose reduction techniques were used (e.g., Automated exposure control, adjustment of the mA and/or kV according to patient size, use of iterative reconstruction technique). RADIATION DOSE SUMMARY: CTDlvol: 24.38 MGy DLP: 438.83 mGycm COMPARISON: None. CT/Limited Chest CT Cardiac Only IMPRESSION: Limited imaging of the liver demonstrates numerous hepatic cysts. Wyqo-ti-stkabfch thoracic aortic calcification seen. Limited imaging of the lungs demonstrates no acute process. No pleural effusion or pneumothorax is seen in visualized areas. No adenopathy is noted. The visualized upper abdomen demonstrates no other significant abnormality. Reading Location: [place] [address] CC: Dr. Edil Trevino MD Floatlight Powder Mixer: Signed Normal [facility] Abdomen WITH IV Contraston 0 10-15-2024 Abdomen WITH IV Contrast [facility] [address] [facility] [place], [place] [address] Abdomen WITH IV Contrast MR#: [id number] Acct: [id number] Name: CHAPINCITO YU Rep #: [id number] : 1955 M 68 From: Kash escobedo MD PCP: Dr. Edil Trevino MD Status: REG CLI Study: Abdomen WITH IV Contrast Date of Exam: 5 Exam# [id number] Ordering Dr: Edil Trevino [id number] STUDY: CT ABDOMEN WITH CONTRAST REASON FOR EXAM: Male, 68 years old. Multiple cyst on US RADIATION DOSAGE (If Supplied By Facility): CTDIvol = ( 17.01 ) mGy, DLP = ( 1490.19 ) mGycm TECHNIQUE: Transaxial images were obtained post I.V. administration of IV 100mL Isovue-300, and oral contrast. Sagittal and coronal images were reconstructed. Individualized dose optimization techniques were used for this CT. COMPARISON: None. FINDINGS: Minimal increased irregular markings in the medial aspect of the right lower lobe suggestive of scarring. The visualized portions of the heart are within normal limits. Multiple cysts are seen throughout the left and right lobes of the liver corresponding to the sonographic findings. Tiny gallstone in the dependent portion of the gallbladder lumen. Normal spleen. Normal pancreas. Normal bilateral adrenal glands. Normal right kidney. There are nonobstructive left intrarenal calculi. The largest measures 6.1 mm and is in the mid pole calyx. Normal visualized stomach. Normal small intestine. Normal colon. The appendix is visualized and appears normal. There is diffuse atherosclerotic calcification of the abdominal aorta and its major visceral branches, without a demonstrated aneurysm. Normal inferior vena cava. Normal retroperitoneum. Mild increased markings are seen in the root of the mesenteric fat suggestive of possible mesenteritis. Normal abdominal wall. Normal osseous structures. CT/Abdomen WITH IV Contrast IMPRESSION: Multiple hepatic cysts. Tiny solitary gallstone along the dependent portion of the gallbladder lumen. Nonobstructive left intrarenal calculi. Increased markings in the mesenteric fat in the root of the mesentery suggestive of possible mesenteritis. This is nonspecific. Electronically Signed: Kash Galarza MD at 11:58 EST , CC: Dr. Edil Trevino MD Floatlight Powder Mixer: Signed Normal [facility] Abdomen Limitedon 09-19-2024 Abdomen Limited [facility] [address] [place] [address] Abdomen Limited MR#: [id number] Acct: [id number] Name: CHAPINCITO YU Rep #: [id number] : 1955 M 68 From: Danielito lynn MD PCP: Dr. Edil Trevino MD Status: REG CLI Study: Abdomen Limited Date of Exam: 09/19/24 Exam# [id number] Ordering Dr: Edil Trevino D [id number] STUDY: ABDOMINAL ULTRASOUND - RIGHT UPPER QUADRANT REASON FOR VISIT: Male, 68 years old fu liver cyst. done at [facility] TECHNIQUE: Ultrasound evaluation of the right upper quadrant was performed with real-time and static maloney-scale imaging. TECHNICAL QUALITY: Limited. Examination limited by bowel gas. COMPARISON: None. FINDINGS: Liver: The liver measures 19.1 cm. There is increased echogenicity consistent with fatty infiltration. The bile ducts are within normal limits. There is hepatic color flow. The direction of portal flow is hepatopetal. Extensive and innumerable liver cysts with the 3 largest measuring as much as 3.0, 3.3, and 4.8 cm. Many of these are irregular and some appear to have a thickened wall. These are not all simple cysts. CT with contrast is recommended. Gallbladder: Normal distended gallbladder. The gallbladder wall measures 2.9 mm. There is a negative sonographic Hughes''s sign. There is no pericholecystic fluid. There are no gallstones. Small 5 mm polyp. Common Bile Duct (C.B.D.): The common bile duct measures 4 mm. Pancreas: Normal size of the head, body and tail of the pancreas. There is normal echogenicity of the pancreas. There is no demonstrated pancreatic mass or cyst. Right Kidney: Normal size of the right kidney. The right kidney measures 11.0 cm. Normal renal cortex. The right cortex measures 2.1 cm. There is no demonstrated renal mass or cyst. There is no right hydronephrosis. US/Abdomen Limited IMPRESSION: Extensive cysts throughout the liver some of which are highly irregular and appear to have a thickened wall and some possibly have some internal echoes. CT with contrast is recommended. Small gallbladder polyp. Electronically Signed: Danielito Dietrich MD at 18:56 EST , CC: Dr. Edil Trevino MD Floatlight Powder Mixer: Signed Normal [facility] CBC-Complete Blood Cnt No Di ffon 08-03-2024 Erythrocyte distribution width (RBC) [Ratio] 12.2 % Normal 11.6-14.6 [facility] Comment on above: Order Comment: Order Date: 07/30/24 Order Info: [id number] - CMP Order Info: [id number] - LIPID Order Info: [id number] - PSA Performed By: #### L 500.4050, L501.9910, L500.4100 #### [facility] [address] [place], [place], [id number] Hematocrit (Bld) [Volume fraction] 45.3 % Normal 40-54 [facility] Comment on above: Order Comment: Order Date: 07/30/24 Order Info: [id number] - CMP Order Info: [id number] - LIPID Order Info: [id number] - PSA Performed By: #### L 500.4050, L501.9910, L500.4100 #### [facility] [address] [place], [place], [id number] Hemoglobin (Bld) [Mass/Vol] 15.3 g/dL Normal 13.0-16.5 [facility] Comment on above: Order Comment: Order Date: 07/30/24 Order Info: [id number] - CMP Order Info: - LIPID Order Info: [id number] - PSA Performed By: #### L 500.4050, L501.9910, L500.4100 #### [facility] [address] [place], [address] MCH (RBC) [Entitic mass] 30.8 pg Normal 27.0-32.0 [facility] Comment on above: Order Comment: Order Date: 07/30/24 Order Info: [id number] - CMP Order Info: - LIPID Order Info: [id number] - PSA Performed By: #### L 500.4050, L501.9910, L500.4100 #### [facility] [address] [place], [address] MCHC (RBC) [Mass/Vol] 33.8 g/dL Normal 32-36 [facility] Comment on above: Order Comment: Order Date: 07/30/24 Order Info: [id number] - CMP Order Info: - LIPID Order Info: [id number] - PSA Performed By: #### L 500.4050, L501.9910, L500.4100 #### [facility] [address] [place], [address] MCV (RBC) [Entitic vol] 91.3 fL Normal 80-94 [facility] Comment on above: Order Comment: Order Date: 07/30/24 Order Info: [id number] - CMP Order Info: - LIPID Order Info: [id number] - PSA Performed By: #### L 500.4050, L501.9910, L500.4100 #### [facility] [address] [place], [address] Platelet mean volume (Bld) [Entitic vol] 11.2 fL Normal 6.2-12.0 [facility] Comment on above: Order Comment: Order Date: 07/30/24 Order Info: [id number] - CMP Order Info: - LIPID Order Info: [id number] - PSA Performed By: #### L 500.4050, L501.9910, L500.4100 #### [facility] [address] [place], [address] Platelets (Bld) [#/Vol] 237 10*3/uL Normal 150-450 [facility] Comment on above: Order Comment: Order Date: 07/30/24 Order Info: [id number] - CMP Order Info: - LIPID Order Info: [id number] - PSA Performed By: #### L 500.4050, L501.9910, L500.4100 #### [facility] [address] [place], [address] RBC (Bld) [#/Vol] 4.96 10*6/uL Normal 4.6-6.2 [facility] Comment on above: Order Comment: Order Date: 07/30/24 Order Info: [id number] - CMP Order Info: - LIPID Order Info: 1 - PSA Performed By: #### L 500.4050, L501.9910, L500.4100 #### [facility] [address] [place], [address] RDW SD 41.1 fl Normal 35.1-43.9 [facility] Comment on above: Order Comment: Order Date: 07/30/24 Order Info: [id number] - CMP Order Info: - LIPID Order Info: [id number] - PSA Performed By: #### L 500.4050, L501.9910, L500.4100 #### [facility] [address] [place], [address] WBC (Bld) [#/Vol] 7.2 10*3/uL Normal 4.4-11.0 [facility] Comment on above: Order Comment: Order Date: 07/30/24 Order Info: [id number] - CMP Order Info: [id number] - LIPID Order Info: 285-1 - PSA Performed By: #### L 500.4050, L501.9910, L500.4100 #### [facility] [address] [place], [address] Comprehensive Metabolic Prof ilon 08-03-2024 Albumin [Mass/Vol] 4.2 g/dL Normal 3.2-5.0 [facility] Comment on above: Order Comment: Order Date: 07/30/24 Order Info: [id number] - CMP Order Info: - LIPID Order Info: [id number] - PSA Performed By: #### L 500.4050, L501.9910, L500.4100 #### [facility] [address] [place], [address] Albumin/Globulin [Mass ratio] 1.4 {ratio} Normal 0.9-2.4 [facility] Comment on above: Order Comment: Order Date: 07/30/24 Order Info: [id number] - CMP Order Info: [id number] - LIPID Order Info: 285-1 - PSA Performed By: #### L 500.4050, L501.9910, L500.4100 #### [facility] [address] [place], [address] ALK P 54 U/L Normal 45-117 [facility] Comment on above: Order Comment: Order Date: 07/30/24 Order Info: 07-1 - CMP Order Info: [id number] - LIPID Order Info: [id number] - PSA Performed By: #### L 500.4050, L501.9910, L500.4100 #### [facility] [address] [place], [address] ALT [Catalytic activity/Vol] 25 U/L Normal 16-61 [facility] Comment on above: Order Comment: Order Date: 07/30/24 Order Info: [id number] - CMP Order Info: [id number] - LIPID Order Info: 285-1 - PSA Performed By: #### L 500.4050, L501.9910, L500.4100 #### [facility] [address] [place], [address] AST [Catalytic activity/Vol] 18 U/L Normal 15-37 [facility] Comment on above: Order Comment: Order Date: 07/30/24 Order Info: 785- - CMP Order Info: - LIPID Order Info: [id number] - PSA Performed By: #### L 500.4050, L501.9910, L500.4100 #### [facility] [address] [place], [address] Bilirubin [Mass/Vol] 0.80 mg/dL Normal 0.20-1.00 [facility] Comment on above: Order Comment: Order Date: 07/30/24 Order Info: 785-09 - CMP Order Info: - LIPID Order Info: [id number] - PSA Result Comment: For patients on eltrombopag therapy, use of Dimension [place] TBIL is not recommended. Performed By: #### L 500.4050, L501.9910, L500.4100 #### [facility] [address] [place], [address] BUN/CRE 16.3 RATIO Normal 10-20 [facility] Comment on above: Order Comment: Order Date: 07/30/24 Order Info: 785-09 - CMP Order Info: - LIPID Order Info: [id number] - PSA Performed By: #### L 500.4050, L501.9910, L500.4100 #### [facility] [address] [place], [address] CA,Total 9.2 mg/dL Normal 8.5-10.1 [facility] Comment on above: Order Comment: Order Date: 07/30/24 Order Info: [id number] - CMP Order Info: - LIPID Order Info: [id number] - PSA Performed By: #### L 500.4050, L501.9910, L500.4100 #### [facility] [address] [place], [address] Chloride [Moles/Vol] 105 mmol/L Normal 98-107 [facility] Comment on above: Order Comment: Order Date: 07/30/24 Order Info: [id number] - CMP Order Info: [id number] - LIPID Order Info: [id number] - PSA Performed By: #### L 500.4050, L501.9910, L500.4100 #### [facility] [address] [place], [address] CO2 [Moles/Vol] 26.0 mmol/L Normal 21.0-32.0 [facility] Comment on above: Order Comment: Order Date: 07/30/24 Order Info: [id number]- - CMP Order Info: [id number] - LIPID Order Info: [id number] - PSA Performed By: #### L 500.4050, L501.9910, L500.4100 #### [facility] [address] [place], [address] Creatinine [Mass/Vol] 1.04 mg/dL Normal 0.70-1.30 [facility] Comment on above: Order Comment: Order Date: 07/30/24 Order Info: [id number] - CMP Order Info: [id number] - LIPID Order Info: [id number] - PSA Result Comment: The validity of the calculated GFR GFRAA in patients over 70 years has not been determined. Clinical correlation is essential. Performed By: #### L 500.4050, L501.9910, L500.4100 #### [facility] [address] [place], [address] EST GFR - AA 91 mL/min Normal >60 [facility] Comment on above: Order Comment: Order Date: 07/30/24 Order Info: [id number] - CMP Order Info: [id number] - LIPID Order Info: [id number] - PSA Result Comment: Afri can Niuean GFR Calc Performed By: #### L 500.4050, L501.9910, L500.4100 #### [facility] [address] [place], [address] GAP 9 Normal 5-15 [facility] Comment on above: Order Comment: Order Date: 07/30/24 Order Info: 07- - CMP Order Info: - LIPID Order Info: [id number] - PSA Performed By: #### L 500.4050, L501.9910, L500.4100 #### [facility] [address] [place], [address] GFR/1.73 sq M.predicted among non-blacks MDRD (S/P/Bld) [Vol rate/Area] 75 mL/min/{1.73_m2} Normal >60 [facility] Comment on above: Order Comment: Order Date: 07/30/24 Order Info: 07 - CMP Order Info: [id number] - LIPID Order Info: [id number] - PSA Result Comment: Non- GFR Calc Performed By: #### L 500.4050, L501.9910, L500.4100 #### [facility] [address] [place], [address] Globulin (S) [Mass/Vol] 3.0 g/dL Normal 2.2-4.2 [facility] Comment on above: Order Comment: Order Date: 07/30/24 Order Info: 0786- - CMP Order Info: [id number] - LIPID Order Info: [id number] - PSA Performed By: #### L 500.4050, L501.9910, L500.4100 #### [facility] [address] [place], [address] Glucose [Mass/Vol] 99 mg/dL Normal 74-106 [facility] Comment on above: Order Comment: Order Date: 07/30/24 Order Info: [id number] - CMP Order Info: - LIPID Order Info: [id number] - PSA Performed By: #### L 500.4050, L501.9910, L500.4100 #### [facility] [address] [place], [address] Potassium [Moles/Vol] 3.9 mmol/L Normal 3.5-5.1 [facility] Comment on above: Order Comment: Order Date: 07/30/24 Order Info: [id number] - CMP Order Info: - LIPID Order Info: [id number] - PSA Performed By: #### L 500.4050, L501.9910, L500.4100 #### [facility] [address] [place], [address] Sodium [Moles/Vol] 140 mmol/L Normal 136-145 [facility] Comment on above: Order Comment: Order Date: 07/30/24 Order Info: [id number] - CMP Order Info: - LIPID Order Info: [id number] - PSA Performed By: #### L 500.4050, L501.9910, L500.4100 #### [facility] [address] [place], [address] T PROT 7.2 g/dL Normal 6.4-8.2 [facility] Comment on above: Order Comment: Order Date: 07/30/24 Order Info: [id number] - CMP Order Info: - LIPID Order Info: [id number] - PSA Performed By: #### L 500.4050, L501.9910, L500.4100 #### [facility] [address] [place], [address] Urea nitrogen [Mass/Vol] 17 mg/dL Normal 7-18 [facility] Comment on above: Order Comment: Order Date: 07/30/24 Order Info: [id number] - CMP Order Info: - LIPID Order Info: [id number] - PSA Performed By: #### L 500.4050, L501.9910, L500.4100 #### [facility] [address] [place], [address] Hemoglobin A1con 08-03-2024 HbA1c (Bld) [Mass fraction] 5.3 % Normal 3.8-5.6 [facility] Comment on above: Order Comment: Order Date: 07/30/24 Order Info: [id number] - A1C Result Comment: Norm al < 5.7 % Prediabetic 5.7 - 6.4 % Diabetic >or= 6.5 % Please note range changes. Performed By: #### L 509.3000, L506.1000, L503.0105, L501.9985 #### [facility] [address] [place], [address] Lipid Profileon 08-03-2024 Cholesterol [Mass/Vol] 192 mg/dL Normal 200 [facility] Comment on above: Order Comment: Order Date: 07/30/24 Order Info: 0786-1 - CMP Order Info: [id number] - LIPID Order Info: [id number] - PSA Result Comment: <200 mg/dL Desirable 200-240 mg/dL Borderline >240 mg/dL High Risk Performed By: #### L 500.4050, L501.9910, L500.4100 #### [facility] [address] [place], [address] Cholesterol in HDL [Mass/Vol] 44 mg/dL Normal [facility] Comment on above: Order Comment: Order Date: 07/30/24 Order Info: [id number] - CMP Order Info: [id number] - LIPID Order Info: [id number] - PSA Result Comment: The drugs N-Acetylcysteine and Metamizole may falsely depress this assay. Reference Range HDL <40 mg/dL Low HDL Cholesterol HDL >or= 60 mg/dL High HDL Cholesterol Performed By: #### L 500.4050, L501.9910, L500.4100 #### [facility] [address] [place], [address] Cholesterol in LDL [Mass/Vol] 118 mg/dL Normal 0-130 [facility] Comment on above: Order Comment: Order Date: 07/30/24 Order Info: [id number] - CMP Order Info: - LIPID Order Info: [id number] - PSA Performed By: #### L 500.4050, L501.9910, L500.4100 #### [facility] [address] [place], [address] Cholesterol in VLDL [Mass/Vol] 30 mg/dL Normal 5-40 [facility] Comment on above: Order Comment: Order Date: 07/30/24 Order Info: [id number] - CMP Order Info: - LIPID Order Info: [id number] - PSA Performed By: #### L 500.4050, L501.9910, L500.4100 #### [facility] [address] [place], [address] Triglyceride [Mass/Vol] 150 mg/dL Normal [facility] Comment on above: Order Comment: Order Date: 07/30/24 Order Info: [id number] - CMP Order Info: - LIPID Order Info: [id number] - PSA Result Comment: The drugs N-Acetylcysteine and Metamizole may falsely depress this assay. Serum Triglycerides Reference Interval Normal <150 mg/dL Borderline high 150 - 199 mg/dL High 200 - 499 mg/dL Very High > or = 500 mg/dL Performed By: #### L 500.4050, L501.9910, L500.4100 #### [facility] [address] [place], [address] PSA,Total - Annual Screenon 08-03-2024 PSA,TOT SCREEN 0.71 ng/mL Normal 0.00-4.00 [facility] Comment on above: Order Comment: Order Date: 07/30/24 Order Info: 785-09 - CMP Order Info: - LIPID Order Info: [id number] - PSA Result Comment: This test was performed using the TPSA assay method for the [employer] chemistry system. Values obtained with different assay methods cannot be used interchangably. When changing PSA assays in the course of monitoring a patient, additional sequential testing should be carried out to confirm baseline values. Performed By: #### L 500.4050, L501.9910, L500.4100 #### [facility] [address] [place], [address] Testosterone, Serum Totalon 08-03-2024 Testosterone [Mass/Vol] 497.25 ng/dL Normal [facility] Comment on above: Order Comment: Order Date: 07/30/24 Order Info: [id number] - B12 Order Info: [id number] - VITD25 Order Info: [id number] - DOUGLAS Result Comment: CENT RAL 90% REFERENCE RANGES MALE AGE <50 197.44 - 669.58 ng/dL MALE AGE > or = 50 187.72 - 684.19 ng/dL FEMALE AGE <50 8.38 - 35.01 ng/dL FEMALE AGE > or = 50 <7.00 - 35.92 ng/dL Effective as of 04/25/21 Performed By: #### L 509.3000, L506.1000, L503.0105, L501.9985 #### [facility] [address] [place], [address] Vitamin B12on 08-03-2024 Cobalamin (Vitamin B12) [Mass/Vol] 453 pg/mL Normal 211-911 [facility] Comment on above: Order Comment: Order Date: 07/30/24 Order Info: [id number] - B12 Order Info: [id number] - VITD25 Order Info: [id number] - DOUGLAS Performed By: #### L 509.3000, L506.1000, L503.0105, L501.9985 #### [facility] [address] [place], [address] Vitamin D,25 Hydroxyon 08-03 Vitamin D 25-OH 25.2 ng/mL Normal [facility] Comment on above: Order Comment: Order Date: 07/30/24 Order Info: 9 - B12 Order Info: [id number] - VITD25 Order Info: [id number] - DOUGLAS Result Comment: Skyla min D 25(OH) Status Range Deficiency <20 ng/mL (50nmol/L) Insufficiency 20 - 30 ng/mL (50 - 75 nmol/L) Sufficiency 30 - 100 ng/mL (75 - 250 nmol/L) Toxicity >100 ng/mL (>250 nmol/L) Performed By: #### L 509.3000, L506.1000, L503.0105, L501.9985 #### [facility] [address] [place], [address] Encounters Encounter Date Encounter Type Care Provider Facility Start: 07-15-2025 End: 07-15-2025 ambulatory [facility] Facility:[facility] Start: 07-06-2025 End: 07-06-2025 [facility] Facility:[facility] Start: 07-06-2025 End: 07-06-2025 [facility] Facility:[facility] Start: 07-02-2025 [facility] Faci lity:[facility] Start: 05-10-2025 End: 05-10-2025 Transcribe Orders Edil Trevino MD Work Phone: Referring Physician Comment on above: Polycystic liver dis ease (Primary Dx) Start: 10-15-2024 End: 10-15-2024 [facility] Facility:[facility] Start: 09-19-2024 End: 09-19-2024 [facility] Facility:[facility] Start: 08-03-2024 End: 08-03-2024 [facility] Facility:[facility] Plan of Treatment Date Care Activity Detail Author Start: 2030 RSV Vaccine (1 - 1-d ose 75+ series) RSV Vaccine (1 - 1-dose 75+ series) [facility] Start: 05-31-2025 Influenza vaccination Influenza Vacc ine (#1) [facility] Start: 09-30-2024 Advance Directive Discussion Advance Directive Discussion [facility] Start: 2005 Pneumococcal Vaccine : 50+ (1 of 1 - PCV) Pneumococcal Vaccine: 50+ (1 of 1 - PCV) [facility] Start: 2005 Shingrix Vaccine (1 of 2) Shingrix V accine (1 of 2) [facility] Start: 2000 Diabetes Screening Diabetes Screenin g [facility] Start: 2000 Screening for malign ant neoplasm of colon [facility] Start: 1990 Lipid panel Lipid Screening [facility] Start: 1974 Urine microalbumin profile DTaP,Tdap,Td Vaccine (1 - Tdap) [facility] Start: 1973 Anxiety Screening Anxiety Screening [facility] Start: 1973 Depression Screening Depression Scre ening [facility] Start: 1973 Hepatitis C screening Hepatitis C Mn hernandez [facility] Payers Date Payer Category Payer Self-pay [id number] 2024 Unknown [id number] 2020 Medicare [id number] Unknown [id number] 2.16.8 [id number] Unknown [id number] 2.16.8 [id number] Unknown [id number] 2.16.8 [id number] Unknown [id number] 2.16.8 [id number] Unknown [id number] 2.16.8 [id number] Social History Date Type Detail [facility] Work Phone: Start: 1955 Sex Assigned At Male [facility] Start: 08-24-2008 Alcoholic beverage intake Current drinker of alcohol (finding) [facility] Start: 1955 Sex assigned at Not on file [facility] Start: 08-31-2012 Sex Male [facility] Gender identity Not on file [facility] Progress note 07-06-2025 Note Date & Type Note Facility 07-06-2025 Note HNO ID: [id number] Author: ALEKSANDER GUEVARA MD Service: ? Author Type: Physician Type: Progress Notes Filed: 07/06/2025 16:58 Note Text: What is the future like in light of liver cysts? The patient is a 69-year-old male presenting for initial evaluation of multiple hepatic cysts and steatotic liver disease, incidentally discovered on imaging. He first became aware of liver cysts in 2019 after a screening scan in [place], which noted ?some cysts? on the liver. He deferred further imaging at that time. In 2023, an abdominal ultrasound revealed extensive, innumerable hepatic cysts and increased echogenicity consistent with steatotic liver disease. A CT scan on 10/15/2024 confirmed multiple hepatic cysts, a tiny gallstone, and a nonobstructive left intrarenal calculus. The spleen and pancreas were normal, and no renal cysts were identified. He reports that his liver enzymes have been normal on serial testing since 2002, most recently in 07/2024. He reports a 20 lb weight loss over the summer through increased walking and exercise, with a goal to lose an additional 10 lbs. He drinks alcohol 3-10 days per month, typically 1 bourbon per occasion, and occasionally wine. He is willing to stop drinking if medically necessary. He denies any other medical problems beyond the liver cysts and recent elevated blood pressure readings, which he plans to address with his PCP in July. Family history is notable for liver cysts in both a brother and a sister, discovered 15 years ago, with no known kidney cysts. His mother had a benign renal tumor. He is retired, enjoys travel, and is active with his grandchildren. - (10/15/2024) CT Abdomen: - Liver: Multiple cysts throughout. - Gallbladder: Tiny gallstone in the dependent portion. - Spleen: Normal. - Pancreas: Normal. - Kidneys: No renal cysts; nonobstructive left intrarenal calculus. - (08/03/2024) - CMP: Within normal limits. - Platelet count: Within normal limits. - Abdominal Ultrasound: Increased echogenicity consistent with hepatic steatosis; extensive and innumerable hepatic cysts. PAST MEDICAL HISTORY Diagnosis Date ALLERGIC RHINITIS NOS UNILAT INGUINAL HERNIA PAST SURGICAL HISTORY Procedure Laterality Date REMOVAL OF TONSILS,<12 Y/O 1975 Tonsillectomy REPAIR SLIDING INGUINAL HERNIA 08/16/08 [facility] REPAIR UMBILICAL RALPH,5+Y/O,REDUC 2006 Hernia repair, umbilical >5yr No current outpatient medications on file. No current facility-administered medications for this visit. Exam: BP 163/76 (BP Site: Left Arm, BP Position: Sitting, BP Cuff Size: Regular Adult) Pulse 102 Ht 180.3 cm (5' 11) Wt 87 kg (191 lb 12.8 oz) SpO2 95% BMI 26.75 kg/m? HEENT: neg abd: no hepatomegaly extrem: no edema neuro: no AMS Impression and Plan: 1. Cystic disease of liver (Q44.6) Extensive, innumerable hepatic cysts noted on imaging; liver size normal on exam and imaging. No evidence of hepatic or renal cysts. Family history of hepatic cysts in siblings. - No intervention indicated at this time. - [facility] IR to over read CT scan (patient request) - No further imaging or routine surveillance recommended unless new symptoms develop. - Discussed natural history of hepatic cysts, rarity of complications, and lack of association with alcohol intake. - Advised patient to contact clinic if new symptoms arise. - Order standard liver function tests. - [facility] to confirm completion of labs and review results. 2. Hepatic steatosis (K76.0) Increased hepatic echogenicity on ultrasound consistent with fatty infiltration; patient has lost approximately 20 lbs and aims to lose 10 more. - Encouraged continued weight loss to reduce hepatic steatosis. - Advised that less alcohol is better than more alcohol, and no alcohol is better than less alcohol for liver health. 3. Calculus of gallbladder without cholecystitis without obstruction (K80.20) Tiny gallstone noted in the gallbladder on CT scan; no evidence of cholecystitis or obstruction. - No intervention indicated at this time. Aleksander Guevara MD [facility] Evaluation note Note Date & Type Note Facility Evaluation note [facility] Evaluation note Note Date & Type Note Facility Evaluation note Diagnosis Polycystic liver disease- Primary Congenital cystic disease of liver documented in this encounter [facility] Summary Purpose Family History No Family History Records FoundNo Family History Records Found Advance Directives No Advanced Directives Records FoundNo Advanced Directives Records Found Additional Source Comments Goals (unrecognized section and content) Goals may be documented in a n alternate section Source Comments (unrecognize d section and content) In the event this informatio n is protected by the Federal Confidentiality of Alcohol and Drug Abuse Patient Records regulations: The Federal rules restrict any use of the information to criminally investigate or prosecute any alcohol or drug abuse patient.[facility] Care Teams (unrecognized sec tion and content) Fig Washer Relationship Specialty Start Date End Date Edil Trevino MD [address] [place] [id number] Referring Family Medicine 05/10/25 (unrecognized sect ion and content) No Status Records FoundNo Status Records Found INFORMATION SOURCE (unrecogn ized section and content) DATE CREATED AUTHOR 07/28/2025 [facility] DATE CREATED AUTHOR AUTHOR'S SALVADOR CARPENTER 08/01/2025 [facility] FOR RECORDS PERTAINING TO PATIENTS WHO ARE OR HAVE BEEN ENROLLED IN A CHEMICAL DEPENDENCY/SUBSTANCEABUSE PROGRAM, SOME INFORMATION MAY BE OMITTED. This clinical summary was aggregated from multiple sources. Caution should be exercised in using it in the provision of clinical care. This summary normalizes information from multiple sources, and as a consequence, information in this document may materially change the coding, format and clinical context of patient data. In addition, data may be omitted in some cases. CLINICAL DECISIONS SHOULD BE BASED ON THE PRIMARY CLINICAL RECORDS. [employer] [facility] provides no warranty or guarantee of the accuracy or completeness of information in this document.
--- OUTSIDE RECORDS SUMMARY | 2025-08-11 07:05 | XMS RPT_ITS | CCD ---
Author Organization [facility] Inform ion Partnership [facility] Care Team Providers Care Barrel Filler Head Name Role Phone Edil Trevino MD Unavailable [phone] ALEKSANDER GUEVARA Attending Unavailable EDIL TREVINO Referring Unavailabl e ALEKSANDER GUEVARA Referring Unavailable Edil Trevino Primary Care Unavailable Edil Trevino Attending Unavailable Edil Trevino Referring Unavailable Belinda, Edil Primary Care Unavailable Edil Trevino Attending Unavailable Edil Trevino Referring Unavailable Belinda, Edil Primary Care Unavailable Edil Trevino Attending Unavailable Edil Trevino Referring Unavailable Edil Trevino Referring Unavailable Belinda, Christophtera Primary Care Unavailable Edil Trevino Attending Unavailable Edil Trevino Referring Unavailable Belinda, Edil Primary Care Unavailable Edil Trevino Attending Unavailable Problems Problem Classification Problem Date Documented [...] 07-27-2025 Chronic Other liver diseases (1 source) Fatty (change of) liver, not elsewhere classified; Translations: [Hepatic steatosis] Onset: 07-06-2025 Chronic Other liver diseases (1 source) Other specified diseases of liver; Translations: [Other specified diseases of liver] Onset: 11-04-2024 Chronic Other screening for suspected conditions (not mental disorders or infectious disease) (1 source) Abnormal findings on diagnostic imaging of heart and coronary circulation; Translations: [Abnormal findings on diagnostic imaging of heart and coronary circulation] Onset: 07-27-2025 Episodic Peripheral and visceral atherosclerosis (1 source) Atherosclerosis of aorta; Translations: [Atherosclerosis of aorta] Onset: 07-02-2025 Chronic Results Test Name Value Interpretation Reference Range Adam Garza 07-27-2025 CNPN Telephone (GASTA5) CHAPINCITO YU ([id number]) 1955 M Date Time Provider Department 07/27/25 [...] PM Signed Kris, Please let him know: [facility] radiologist over read: IMPRESSION: Multiple fluid attenuating [...] Status:Closed by KRIS ZALDIVAR on 07/30/25 Normal [facility] L3410.9992on 07-20-2025 [facility] Misc. COMMENT Normal . [facility] Comment on above: Order Comment: 56926 3 APOLIPID Result Comment: Test Ordered: [id number] Apolipoprotein A-1 Apolipoprotein A-1 116 mg/dL Reference Range: 101-178 Performed at: - [facility] [address] [id number] Electric Motor Repairman: Ester Biggs MD, Phone: [phone] Performed at: - [facility] [address] [id number] Electric Motor Repairman: Fredy Hummel PhD, Phone: [phone] Performed By: #### L 3410.9992, L506.1005 #### [facility] [address] [place], [address] Comprehensive Metabolic Prof [facility] 07-15-2025 Albumin [Mass/Vol] 4.7 g/dL Normal 3.4-4.[address] [facility] Comment on above: Order Comment: Order Date: 07/13/25 Order Info: 0786-1 - CMP Order Info: [id number] - MG Performed By: #### L 501.5200, L500.4050 #### [facility] [address] [place], [address] Albumin/Globulin [Mass ratio] 2.0 {ratio} Normal 0.9-2.4 [facility] Comment on above: Order Comment: Order Date: 07/13/25 Order Info: 0786-1 - CMP Order Info: [id number] - MG Performed By: #### L 501.5200, L500.4050 #### [facility] [address] [place], [address] ALK PHOS 52 U/L Normal 40-129 [facility] Comment on above: Order Comment: Order Date: 07/13/25 Order Info: 0786-1 - CMP Order Info: [id number] - MG Performed By: #### L 501.5200, L500.4050 #### [facility] [address] [place], [address] ALT [Catalytic activity/Vol] 16 U/L Normal <=46 [facility] Comment on above: Order Comment: Order Date: 07/13/25 Order Info: 0786-1 - CMP Order Info: [id number] - MG Performed By: #### L 501.5200, L500.4050 #### [facility] [address] [place], [address] AST [Catalytic activity/Vol] 21 U/L Normal <=37 [facility] Comment on above: Order Comment: Order Date: 07/13/25 Order Info: 0786-1 - CMP Order Info: [id number] - MG Performed By: #### L 501.5200, L500.4050 #### [facility] [address] [place], [address] Bilirubin [Mass/Vol] 0.76 mg/dL Normal 0.00-1.30 [facility] Comment on above: Order Comment: Order Date: 07/13/25 Order Info: 0786-1 - CMP Order Info: [id number] - MG Performed By: #### L 501.5200, L500.4050 #### [facility] [address] [place], [address] BUN/CRE 16.6 RATIO Normal 10-20 [facility] Comment on above: Order Comment: Order Date: 07/13/25 Order Info: 0786-1 - CMP Order Info: [id number] - MG Performed By: #### L 501.5200, L500.4050 #### [facility] [address] [place], [address] Calcium [Mass/Vol] 9.8 mg/dL Normal 7.6-11.[address] [facility] Comment on above: Order Comment: Order Date: 07/13/25 Order Info: 0786-1 - CMP Order Info: [id number] - MG Performed By: #### L 501.5200, L500.4050 #### [facility] [address] [place], [address] Chloride [Moles/Vol] 103 mmol/L Normal 98-108 [facility] Comment on above: Order Comment: Order Date: 07/13/25 Order Info: 0786-1 - CMP Order Info: [id number] - MG Performed By: #### L 501.5200, L500.4050 #### [facility] [address] [place], [address] CO2 [Moles/Vol] 26.1 mmol/L Normal 21.0-32.0 [facility] Comment on above: Order Comment: Order Date: 07/13/25 Order Info: 0786-1 - CMP Order Info: [id number] - MG Performed By: #### L 501.5200, L500.4050 #### [facility] [address] [place], [address] Creatinine [Mass/Vol] 1.00 mg/dL Normal 0.70-1.20 [facility] Comment on above: Order Comment: Order Date: 07/13/25 Order Info: 0786-1 - CMP Order Info: [id number] - MG Performed By: #### L 501.5200, L500.4050 #### [facility] [address] [place], [address] GAP 11 Normal 5-15 [facility] Comment on above: Order Comment: Order Date: 07/13/25 Order Info: 0786-1 - CMP Order Info: [id number] - MG Performed By: #### L 501.5200, L500.4050 #### [facility] [address] [place], [address] GFR/1.73 sq M.predicted among non-blacks MDRD (S/P/Bld) [Vol rate/Area] 81 mL/min/{1.73_m2} Normal >60 [facility] Comment on above: Order Comment: Order Date: 07/13/25 Order Info: 0786-1 - CMP Order Info: [id number] - MG Result Comment: mL/m in/1.73m2 CKD-EPI Creatinine Equation (2020) Performed By: #### L 501.5200, L500.4050 #### [facility] [address] [place], [address] Globulin (S) [Mass/Vol] 2.4 g/dL Normal 2.2-4.2 [facility] Comment on above: Order Comment: Order Date: 07/13/25 Order Info: 0786-1 - CMP Order Info: [id number] - MG Performed By: #### L 501.5200, L500.4050 #### [facility] [address] [place], [address] Glucose [Mass/Vol] 98 mg/dL Normal 70-[address] [facility] Comment on above: Order Comment: Order Date: 07/13/25 Order Info: 0786-1 - CMP Order Info: [id number] - MG Performed By: #### L 501.5200, L500.4050 #### [facility] [address] [place], [address] Potassium [Moles/Vol] 4.0 mmol/L Normal 3.3-5.1 [facility] Comment on above: Order Comment: Order Date: 07/13/25 Order Info: 0786-1 - CMP Order Info: [id number] - MG Performed By: #### L 501.5200, L500.4050 #### [facility] [address] [place], [address] Sodium [Moles/Vol] 139 mmol/L Normal 133-[address] [facility] Comment on above: Order Comment: Order Date: 07/13/25 Order Info: 0786-1 - CMP Order Info: [id number] - MG Performed By: #### L 501.5200, L500.4050 #### [facility] [address] [place], [address] T PROT 7.0 g/dL Normal 5.9-8.4 [facility] Comment on above: Order Comment: Order Date: 07/13/25 Order Info: 0786-1 - CMP Order Info: [id number] - MG Performed By: #### L 501.5200, L500.4050 #### [facility] [address] [place], [address] Urea nitrogen [Mass/Vol] 17 mg/dL Normal 4-19 [facility] Comment on above: Order Comment: Order Date: 07/13/25 Order Info: 0786-1 - CMP Order Info: [id number] - MG Performed By: #### L 501.5200, L500.4050 #### [facility] [address] [place], [address] Magnesiumon 07-15-2025 Magnesium [Mass/Vol] 2.2 mg/dL Normal 1.5-2.2 [facility] Comment on above: Order Comment: Order Date: 07/13/25 Order Info: 0786-1 - CMP Order Info: [id number] - MG Performed By: #### L 501.5200, L500.4050 #### [facility] [address] [place], [address] NMR Lipoprofileon 07-15-2025 CHOL TOTAL Normal [facility] Comment on above: Order Comment: Order Date: 07/13/25 Order Info: 0842-1 - NMRLIP Result Comment: CAN NOT DO TEST DUE TO [facility] Performed By: #### L 3500.0000 #### [facility] [address] [place], [address] HDL-C Normal [facility] Comment on above: Order Comment: Order Date: 07/13/25 Order Info: 0842-1 - NMRLIP Result Comment: CAN NOT DO TEST DUE TO [facility] Performed By: #### L 3500.0000 #### [facility] [address] [place], [address] HDL-P TOTAL Normal [facility] Comment on above: Order Comment: Order Date: 07/13/25 Order Info: 0842-1 - NMRLIP Result Comment: CAN NOT DO TEST DUE TO [facility] Performed By: #### L 3500.0000 #### [facility] [address] [place], [address] INS. RES. SCORE Normal [facility] Comment on above: Order Comment: Order Date: 07/13/25 Order Info: 0842-1 - NMRLIP Result Comment: CAN NOT DO TEST DUE TO [facility] Performed By: #### L 3500.0000 #### [facility] [address] [place], [address] LDL SIZE Normal [facility] Comment on above: Order Comment: Order Date: 07/13/25 Order Info: 0842-1 - NMRLIP Result Comment: CAN NOT DO TEST DUE TO [facility] Performed By: #### L 3500.0000 #### [facility] [address] [place], [address] LDL-C (NIH CALC Normal [facility] Comment on above: Order Comment: Order Date: 07/13/25 Order Info: 0842-1 - NMRLIP Result Comment: CAN NOT DO TEST DUE TO [facility] Performed By: #### L 3500.0000 #### [facility] [address] [place], [address] LDL-P Normal [facility] Comment on above: Order Comment: Order Date: 07/13/25 Order Info: 0842-1 - NMRLIP Result Comment: CAN NOT DO TEST DUE TO [facility] Performed By: #### L 3500.0000 #### [facility] [address] [place], [address] SMALL LDL-P Normal [facility] Comment on above: Order Comment: Order Date: 07/13/25 Order Info: 0842-1 - NMRLIP Result Comment: CAN NOT DO TEST DUE TO [facility] Performed By: #### L 3500.0000 #### [facility] [address] [place], [place], [address] TRIGLYCERIDES Normal [facility] Comment on above: Order Comment: Order Date: 07/13/25 Order Info: 0842-1 - NMRLIP Result Comment: CAN NOT DO TEST DUE TO [facility] Performed By: #### L 3500.0000 #### [facility] [address] [place], [address] Vitamin D,25 Hydroxyon 07-15 Vitamin D 25-OH 26.4 ng/mL Low 30-100 [facility] Comment on above: Order Comment: Order Date: 07/13/25 Order Info: 0786-1 - CMP Order Info: [id number] - MG Result Comment: Skyla min D Status Deficiency: <20 ng/mL (50nmol/L) Insufficiency: 20-30 ng/mL (50-75 nmol/L) Sufficiency: 30-100 ng/mL (75-250 nmol/L) Toxicity: >100 ng/mL (>250 nmol/L) Performed By: #### L 3410.9992, L506.1001 #### [facility] [address] 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0 % Normal 39.0-51.0 [facility] Comment on above: Order Comment: Speci men Type: BLOOD SPECIMEN Ordering Facility: [facility] Address: [address] [place] [address] Performed By: #### 5 8410-2 #### [facility] CLIA [id number] [address] [place] [address] [place] Hemoglobin (Bld) [Mass/Vol] 15.7 g/dL Normal 13.0-17.0 [facility] Comment on above: Order Comment: Speci men Type: BLOOD SPECIMEN Ordering Facility: [facility] Address: [address] [place] [address] Performed By: #### 5 8410-2 #### [facility] CLIA [id number] [address] [place] [address] [place] MCH (RBC) [Entitic mass] 31.5 pg Normal 26.0-34.0 [facility] Comment on above: Order Comment: Speci men Type: BLOOD SPECIMEN Ordering Facility: [facility] Address: [address] [place] [address] Performed By: #### 5 8410-2 #### [facility] CLIA [id number] [address] [place] [address] [place] MCHC (RBC) [Mass/Vol] 34.9 g/dL Normal 30.5-36.0 [facility] Comment on above: Order Comment: Speci men Type: BLOOD SPECIMEN Ordering Facility: [facility] Address: [address] [place] [address] Performed By: #### 5 8410-2 #### [facility] CLIA [id number] [address] [place] [address] [place] MCV (RBC) [Entitic vol] 90.4 fL Normal 80.0-100.0 [facility] Comment on above: Order Comment: Speci men Type: BLOOD SPECIMEN Ordering Facility: [facility] Address: [address] [place] [address] Performed By: #### 5 8410-2 #### [facility] CLIA [id number] [address] [place] [address] [place] Nucleated RBC (Bld) [#/Vol] 10*3/uL Normal <0.01 [facility] Comment on above: Order Comment: Speci men Type: BLOOD SPECIMEN Ordering Facility: [facility] Address: [address] [place] [address] Performed By: #### 5 8410-2 #### [facility] CLIA [id number] [address] [place] [address] [place] Platelet mean volume (Bld) [Entitic vol] 11.3 fL Normal 9.0-12.7 [facility] Comment on above: Order Comment: Speci men Type: BLOOD SPECIMEN Ordering Facility: [facility] Address: [address] [place] [address] Performed By: #### 5 8410-2 #### [facility] CLIA [id number] [address] [place] [address] [place] Platelets (Bld) [#/Vol] 235 10*3/uL Normal 150-400 [facility] Comment on above: Order Comment: Speci men Type: BLOOD SPECIMEN Ordering Facility: [facility] Address: [address] [place] [address] Performed By: #### 5 8410-2 #### [facility] CLIA [id number] [address] [place] [address] [place] RBC (Bld) [#/Vol] 4.98 10*6/uL Normal 4.20-6.00 [facility] Comment on above: Order Comment: Speci men Type: BLOOD SPECIMEN Ordering Facility: [facility] Address: [address] [place] [address] Performed By: #### 5 8410-2 #### [facility] CLIA [id number] [address] [place] [address] [place] WBC (Bld) [#/Vol] 7.07 10*3/uL Normal 3.70-11.00 [facility] Comment on above: Order Comment: Speci men Type: BLOOD SPECIMEN Ordering Facility: [facility] Address: [address] [place] [address] Performed By: #### 5 8410-2 #### [facility] CLIA [id number] [address] [place] [address] [place] CNOVon 07-06-2025 CNOV Office Visit (GASTA5 ) GIGICHAPINCITO Micaela ([id number]) 1955 M Date Time Provider Department 07/06/25 [...] tests. - Check in with me via [employer] in 7-10 days to confirm that the radiologist has reviewed your CT scan and to discuss your blood test results. - There is no need for additional imaging unless new symptoms arise. If you have any questions or concerns, please reach out through [employer]. Aleksander Guevara MD 07/06/2025 4:58 PM Signed What is the future like in light of liver cysts? The patient is a 69-year-old male presenting for initial evaluation of multiple hepatic cysts and steatotic liver disease, incidentally discovered on imaging. He first became aware of liver cysts in 2019 after a screening scan in [place], which noted ?some cysts? on the liver. [...] 1975 Tonsillectomy REPAIR SLIDING INGUINAL HERNIA 08/16/08 RIH REPAIR UMBILICAL RALPH,5+Y/O,REDUC 2006 Hernia repair, umbilical [...] renal cy (more content not included)... Normal [facility] Comprehensive metabolic 2000 panelon 07-06-2025 Albumin [Mass/Vol] 4.8 g/dL Normal 3.9-4.9 [facility] Comment on above: Order Comment: Sam arana Type: BLOOD SPECIMEN Ordering Facility: [facility] Address: [address] [place] [address] Performed By: #### 2 4323-8 #### [facility] CLIA [id number] [address] [place] [address] [place] ALP [Catalytic activity/Vol] 55 U/L Normal 38-113 [facility] Comment on above: Order Comment: Sam arana Type: BLOOD SPECIMEN Ordering Facility: [facility] Address: [address] [place] [address] Performed By: #### 2 4323-8 #### [facility] CLIA [id number] [address] [place] [address] [place] ALT [Catalytic activity/Vol] 14 U/L Normal 10-54 [facility] Comment on above: Order Comment: Sam arana Type: BLOOD SPECIMEN Ordering Facility: [facility] Address: [address] [place] [address] Performed By: #### 2 4323-8 #### [facility] CLIA [id number] [address] [place] [address] [place] Anion gap [Moles/Vol] 13 mmol/L Normal 8-15 [facility] Comment on above: Order Comment: Speci men Type: BLOOD SPECIMEN Ordering Facility: [facility] Address: [address] [place], [place] [address] Performed By: #### 2 4323-8 #### [facility] CLIA [id number] [address] [place], [place] [address] [place] AST [Catalytic activity/Vol] 20 U/L Normal 14-40 [facility] Comment on above: Order Comment: Speci men Type: BLOOD SPECIMEN Ordering Facility: [facility] Address: [address] [place], [place] [address] Performed By: #### 2 4323-8 #### [facility] CLIA [id number] [address] [place] [address] [place] Bilirubin [Mass/Vol] 0.6 mg/dL Normal 0.2-1.3 [facility] Comment on above: Order Comment: Speci men Type: BLOOD SPECIMEN Ordering Facility: [facility] Address: [address] [place] [address] Performed By: #### 2 4323-8 #### [facility] CLIA [id number] [address] [place] [address] [place] Calcium [Mass/Vol] 10.0 mg/dL Normal 8.5-10.2 [facility] Comment on above: Order Comment: Speci men Type: BLOOD SPECIMEN Ordering Facility: [facility] Address: [address] [place], [place] [address] Performed By: #### 2 4323-8 #### [facility] CLIA [id number] [address] [place], [place] [address] [place] Chloride [Moles/Vol] 104 mmol/L Normal 98-107 [facility] Comment on above: Order Comment: Speci men Type: BLOOD SPECIMEN Ordering Facility: [facility] Address: [address] [place], [place] [address] Performed By: #### 2 4323-8 #### [facility] CLIA [id number] [address] [place] [id number] [place] CO2 [Moles/Vol] 23 mmol/L Normal 22-30 [facility] Comment on above: Order Comment: Speci men Type: BLOOD SPECIMEN Ordering Facility: [facility] Address: [address] [place] [address] Performed By: #### 2 4323-8 #### [facility] CLIA [id number] [address] [place] [address] [place] Creatinine [Mass/Vol] 0.98 mg/dL Normal 0.73-1.22 [facility] Comment on above: Order Comment: Speci men Type: BLOOD SPECIMEN Ordering Facility: [facility] Address: [address] [place] [address] Performed By: #### 2 4323-8 #### [facility] [place] [id number] [address] [place] [address] [place] eGFRcr SerPlBld CKD-EPI 2020 83 mL/min/1.73m??? Normal >=60 [facility] Comment on above: Order Comment: Speci men Type: BLOOD SPECIMEN Ordering Facility: [facility] Address: [address] [place] [address] Result Comment: Bobbi mated Glomerular Filtration Rate [...] GFR. Performed By: #### 2 4323-8 #### [facility] [place] [id number] [address] [place] [address] [place] Glucose [Mass/Vol] 99 mg/dL Normal 74-99 [facility] Comment on above: Order Comment: Speci men Type: BLOOD SPECIMEN Ordering Facility: [facility] Address: [address] [place] [address] Result Comment: The [place] [employer] (ADA) provides guidance for cutoff [...] Standards of Medical Care in Diabetes 2016, [place] [employer]. Diabetes Care. 2016.39(Suppl 1). Performed By: #### 2 4323-8 #### [facility] CLIA [id number] [address] [place] [address] [place] Potassium [Moles/Vol] 4.6 mmol/L Normal 3.7-5.1 [facility] Comment on above: Order Comment: Speci men Type: BLOOD SPECIMEN Ordering Facility: [facility] Address: [address] [place] [address] Performed By: #### 2 4323-8 #### [facility] CLIA [id number] [address] [place] [address] [place] Protein [Mass/Vol] 7.4 g/dL Normal 6.3-8.0 [facility] Comment on above: Order Comment: Speci men Type: BLOOD SPECIMEN Ordering Facility: [facility] Address: [address] [place] [address] Performed By: #### 2 4323-8 #### [facility] CLIA [id number] [address] [place] [address] [place] Sodium [Moles/Vol] 140 mmol/L Normal 136-144 [facility] Comment on above: Order Comment: Speci men Type: BLOOD SPECIMEN Ordering Facility: [facility] Address: [address] [place] [address] Performed By: #### 2 4323-8 #### [facility] CLIA [id number] [address] [place] [address] [place] Urea nitrogen [Mass/Vol] 15 mg/dL Normal 9-24 [facility] Comment on above: Order Comment: Sam arana Type: BLOOD SPECIMEN Ordering Facility: [facility] Address: [address] [place] [address] Performed By: #### 2 4323-8 #### [facility] CLIA [id number] [address] [place] [address] [place] PT panel Coag (PPP)on 2024 INR Coag (PPP) [Relative time] 1.0 {INR} Normal 0.9-1.3 [facility] Comment on above: Order Comment: Shiloi yasmeen Type: BLOOD SPECIMEN Ordering Facility: [facility] Address: [address] [place] [address] Result Comment: Skyla min K Antagonist (VKA) Therapeutic Range: INR 2 to 3 (Target INR of 2.5) Note: For patients treated with VKA drugs, such as warfarin, the [place] [employer] 2012 Guideline recommends [...] 2.5 to 3.5 (target INR of 3). Baott GH, et al. Chest 2012, 141:7S-47S Taco RA et al. JAC 2017, 70: 252-289 Performed By: #### 3 4528-0 #### [facility] CLIA [id number] [address] [place] [address] [place] PT Coag (PPP) [Time] 11.0 s Normal 9.7-13.0 [facility] Comment on above: Order Comment: Speci men Type: BLOOD SPECIMEN Ordering Facility: [facility] Address: [address] [place] [address] Performed By: #### 3 4528-0 #### [facility] CLIA [id number] [address] [place] [address] [place] [address] [place] [facility] Coronary Angiography CTon Coronary Angiography CT [facility] Imaging Services [address] [place] [address] 07/05/25 1034 MR#: [id number] Acct: [id number] Name: CHAPINCITO YU Rep #: [id number] : 1955 69 From: Enrique Bianchi MD PCP: Dr. Edil Trevino MD Status:REG [...] of plaque noted. 07/05/25 1038 Date Enrique Harrison Signature (if applicable): Date CC: Dr. Edil Trevino MD; Dr. Enrique Bianchi MD Signed Normal [facility] Limited Chest CT Cardiac Onl yon 07-02-[address] Cardiac Only [facility] Imaging Services [address] [place] [id number] Cardiac Only MR#: [id number] Acct: [id number] Name: CHAPINCITO YU Rep #: [id number] : 1955 M 69 From: Erasmo Hinojosa PCP: Dr. Edil Trevino MD Status: REG REF Study: Limited Chest CT Cardiac Only Date of Exam: Exam# [id number] Ordering Dr: Edil Trevino PROCEDURE: LIMITED CHEST [...] of the liver demonstrates numerous hepatic cysts. Egha-vq-zdarjpru thoracic aortic calcification seen. Limited imaging of the lungs demonstrates no acute process. No pleural effusion or pneumothorax is seen in visualized areas. No adenopathy is noted. The visualized upper abdomen demonstrates no other significant abnormality. Reading Location: [place] [address] CC: Dr. Edil Trevino MD Hydrometeorology Teacher: Signed Normal [facility] Abdomen WITH IV Contraston 0 10-15-2024 Abdomen WITH IV Contrast [facility] Imaging Services [address] [place] [address] Abdomen WITH IV Contrast MR#: [id number] Acct: [id number] Name: CHAPINCITO YU Rep #: [id number] : 1955 M 68 From: Kash escobedo MD PCP: Dr. Edil Trevino MD Status: REG CLI Study: Abdomen WITH IV Contrast Date of Exam: 5 Exam# [id number] Ordering Dr: Edil Trevino D [id number] STUDY: CT ABDOMEN WITH CONTRAST REASON FOR [...] EST , CC: Dr. Edil Trevino MD Hydrometeorology Teacher: Signed Normal [facility] Abdomen Limitedon 09-19-2024 Abdomen Limited [facility] Imaging Services [address] [place], [place] [address] Abdomen Limited MR#: [id number] Acct: [id number] Name: CHAPINCITO YU Rep #: [id number] : 1955 68 From: Danielito lynn MD PCP: Dr. Edil Trevino MD Status: [facility] Study: Abdomen Limited Date of Exam: 09/19/24 Exam# [id number] Ordering Dr: Edil Trevino [id number] STUDY: ABDOMINAL ULTRASOUND - RIGHT UPPER QUADRANT [...] EST , CC: Dr. Edil Trevino MD Hydrometeorology Teacher: Signed Normal [facility] Encounters Encounter Date Encounter Type Care Provider Facility Start: 08-10-2025 ambulatory Edil Wahl lity:[facility] Start: 07-15-2025 End: 07-15-2025 ambulatory Edil Trevino Facility:[facility] Start: 07-06-2025 End: 07-06-2025 [facility] Start: 07-06-2025 End: 07-06-2025 [facility] Start: 07-02-2025 ambulatory Edil Trevino Faci lity:[facility] Start: 05-10-2025 End: 05-10-2025 Transcribe Orders Edil Trevino MD Work Phone: Referring Physician Comment on above: Polycystic liver dis ease (Primary Dx) Start: 10-15-2024 End: [facility] Start: 09-19-2024 End: 09-[facility]24 [facility] Plan of Treatment Date Care Activity Detail Author Start: 2030 RSV Vaccine (1 - 1-d ose 75+ series) RSV Vaccine (1 - 1-dose 75+ series) [facility] Start: 05-31-2025 Influenza vaccination Influenza Vacc ine (#1) [facility] Start: 09-30-2024 Advance Directive Discussion Advance Directive Discussion [facility] Start: 2005 Pneumococcal Vaccine : 50+ (1 of 1 - PCV) Pneumococcal Vaccine: 50+ (1 of 1 - PCV) [facility] Start: 2005 Shingrix Vaccine (1 of 2) Shingrix V accine (1 of 2) [facility] Start: 2000 Diabetes Screening Diabetes Screenin g [facility] Start: 2000 Screening for malign ant neoplasm of colon [facility] Start: 1990 Lipid panel Lipid Screening [facility] Start: 1974 Urine microalbumin profile DTaP,Tdap,Td Vaccine (1 - Tdap) [facility] Start: 1973 Anxiety Screening Anxiety Screening [facility] Start: 1973 Depression Screening Depression Scre ening [facility] Start: 1973 Hepatitis C screening Hepatitis C [place] hernandez [facility] Payers Date Payer Category Payer Self-pay [id number] 2024 Unknown [id number] 2020 Medicare [id number] Unknown [id number] 2.16.8 [id number] Unknown [id number] 2.16.8 [id number] Unknown [id number] 2.16.8 [id number] Unknown [id number] 2.16.8 [id number] Unknown [id number] 2.16.8 [id number] Social History Date Type Detail [facility] Work Phone: Start: 1955 Sex Assigned At Male [facility] Work Phone: Tobacco smoking stat [facility] Never smoked tobacco [facility] Start: 08-24-2008 Alcoholic beverage intake Current drinker of alcohol (finding) [facility] Start: 1955 Sex assigned at Not on file [facility] Start: 08-31-2012 Sex Male [facility] Gender identity Not on file [facility] Progress note 07-06-2025 Note Date & Type Note Facility 07-06-2025 Note HNO ID: [id number] Author: ALEKSANDER GUEVARA MD Service: ? Author Type: Physician Type: Progress Notes Filed: 07/06/2025 16:58 Note Text: What is the future like in light of liver cysts? The patient is a 69-year-old male presenting for initial evaluation of multiple hepatic cysts and steatotic liver disease, incidentally discovered on imaging. He first became aware of liver cysts in 2019 after a screening scan in [place], which noted ?some cysts? on the liver. [...] INGUINAL HERNIA 08/16/08 [facility],5+Y/O,REDUC 2006 Hernia repair, umbilical >5yr No current [...] standard liver function tests. - [facility] to confirm completion of [...] indicated at this time. Aleksander Guevara MD [facility] Evaluation note Note Date & Type Note Facility Evaluation note No assessment information availa [facility] Work Phone: Evaluation note Note Date & Type Note Facility Evaluation note Diagnosis Polycystic liver disease- Primary Congenital cystic disease of liver documented in this encounter [facility] Summary Purpose Family History No Family History [...] or prosecute any alcohol or drug abuse patient.[facility] Care Teams (unrecognized sec tion and content) Barrel Filler Head Relationship Specialty Start Date End Date Edil Trevino MD [address] [place] [id number] Referring Family Medicine 05/10/25 (unrecognized sect ion and content) No Status Records FoundNo Status Records Found INFORMATION SOURCE (unrecogn ized section and content) DATE CREATED AUTHOR 08/01/2025 [facility] DATE CREATED AUTHOR AUTHOR'S SALVADOR CARPENTER 08/11/2025 [facility] FOR RECORDS PERTAINING TO PATIENTS WHO [...] BE BASED ON THE PRIMARY CLINICAL RECORDS. [employer] provides no warranty or guarantee of the accuracy or completeness of information in this document.
[2025-08-12 16:09] LABS: CHOLESTEROL TOTAL 168 mg/dL (100-199); CRP, High Sensitivity 0.33 mg/L (0.00-3.00); HDL-C 43 mg/dL (>39); HDL-P TOTAL 31.1 umol/L (>=30.5); INSULIN RESISTANCE SCORE 62 (<=45); LDL SIZE 21.0 nm (>20.5); LDL-C (NIH CALC) 104 mg/dL (0-99); LDL-P 1108 nmol/L (<1000); SMALL LDL-P 317 nmol/L (<=527)
== END | disposition home or self-care (01) ==
LOC: LAB.FUTURE 07:03 → MTLAB 07:03
PROVIDERS: PCP Family Medicine; Referring Provider Family Medicine; Visit Provider Family Medicine
DX: I25.10 Atherosclerotic heart disease of native coronary artery without angina pectoris (principal)
CPT/HCPCS: 36415; 80061; 83704; 86141

== ENCOUNTER → 2025-09-01 | Outpatient (CLI) | payer MEDICARE, OTHER, SELFPAY ==
--- OUTSIDE RECORDS SUMMARY | 2025-09-01 07:05 | XMS RPT_ITS | CCD ---
Author Organization [facility] Inform ion Partnership [facility] Care Team Providers Care Billing Auditor Name Role Phone Edil Trevino MD Unavailable [phone] ALEKSANDER GUEVARA Attending Unavailable EDIL TREVINO Referring Unavailabl e ALEKSANDER GUEVARA Referring Unavailable Edil Trevino Referring Unavailable Edil Trevino Primary Care Unavailable Edil Trevino Attending Unavailable Belinda, Edil Primary Care Unavailable Edil Trevino Attending Unavailable Edil Trevino Referring Unavailable Belinda, Edil Primary Care Unavailable Edil Trevino Attending Unavailable Edil Trevino Referring Unavailable Edil Trevino Primary Care Unavailable Edil Trevino Attending Unavailable Belinda, Edil Referring Unavailable Edil Trevino Referring Unavailable Belinda, Edil [...] Garza 07-27-2025 CNPN Telephone (GASTA5) CHAPINCITO YU ([id number]) 1955 M Date Time Provider Department 07/27/25 [...] PM Signed Kris, Please let him know: [facility] radiologist over read: IMPRESSION: Multiple fluid attenuating [...] Status:Closed by KRIS ZALDIVAR on 07/30/25 Normal [facility] L3410.9992on 07-20-2025 [facility] Misc. COMMENT Normal . [facility] Comment on above: Order Comment: [id number] APOLIPID Result Comment: Test Ordered: [id number] Apolipoprotein A-1 Apolipoprotein A-1 116 mg/dL Reference Range: 101-178 Performed at: - [facility] [address] [id number] Service Center Coordinator: Ester Biggs MD, Phone: [phone] Performed at: - [facility] [address] [id number] Service Center Coordinator: Fredy Hummel PhD, Phone: [phone] Performed By: #### L 3410.9992, L506.1008 #### [facility] [address] [place], [address] Comprehensive Metabolic Prof [facility] 07-15-2025 Albumin [Mass/Vol] 4.7 g/dL Normal 3.4-4.8 [facility] Comment on above: Order Comment: Order Date: 07/13/25 Order Info: 0786-1 - CMP Order Info: [id number] - MG Performed By: #### L 501.5200, L500.4050 #### [facility] [address] [place], [address] Albumin/Globulin [Mass ratio] 2.0 {ratio} Normal 0.9-2.4 [facility] Comment on above: Order Comment: Order Date: 07/13/25 Order Info: 0786-1 - CMP Order Info: [id number] - MG Performed By: #### L 501.5200, L500.4050 #### [facility] [address] [place], [address] ALK PHOS 52 U/L Normal 40-129 [facility] Comment on above: Order Comment: Order Date: 07/13/25 Order Info: 0786-1 - CMP Order Info: [id number] - MG Performed By: #### L 501.5200, L500.4050 #### [facility] [address] [place], [address] ALT [Catalytic activity/Vol] 16 U/L Normal <=46 [facility] Comment on above: Order Comment: Order Date: 07/13/25 Order Info: 0786-1 - CMP Order Info: [id number] - MG Performed By: #### L 501.5200, L500.4050 #### [facility] [address] [place], [address] AST [Catalytic activity/Vol] 21 U/L Normal <=37 [facility] Comment on above: Order Comment: Order Date: 07/13/25 Order Info: 0786-1 - CMP Order Info: [id number] - MG Performed By: #### L 501.5200, L500.4050 #### [facility] [address] [place], [address] Bilirubin [Mass/Vol] 0.76 mg/dL Normal 0.00-1.30 [facility] Comment on above: Order Comment: Order Date: 07/13/25 Order Info: 0786-1 - CMP Order Info: [id number] - MG Performed By: #### L 501.5200, L500.4050 #### [facility] [address] [place], [address] BUN/CRE 16.6 RATIO Normal 10-20 [facility] Comment on above: Order Comment: Order Date: 07/13/25 Order Info: 0786-1 - CMP Order Info: [id number] - MG Performed By: #### L 501.5200, L500.4050 #### [facility] [address] [place], [address] Calcium [Mass/Vol] 9.8 mg/dL Normal 7.6-11.0 [facility] Comment on above: Order Comment: Order Date: 07/13/25 Order Info: 0786-1 - CMP Order Info: [id number] - MG Performed By: #### L 501.5200, L500.4050 #### [facility] [address] [place], [address] Chloride [Moles/Vol] 103 mmol/L Normal 98-108 [facility] Comment on above: Order Comment: Order Date: 07/13/25 Order Info: 0786-1 - CMP Order Info: [id number] - MG Performed By: #### L 501.5200, L500.4050 #### [facility] [address] [place], [address] CO2 [Moles/Vol] 26.1 mmol/L Normal 21.0-32.0 [facility] Comment on above: Order Comment: Order Date: 07/13/25 Order Info: 0786-1 - CMP Order Info: [id number] - MG Performed By: #### L 501.5200, L500.4050 #### [facility] [address] [place], [address] Creatinine [Mass/Vol] 1.00 mg/dL Normal 0.70-1.20 [facility] Comment on above: Order Comment: Order Date: 07/13/25 Order Info: 0786-1 - CMP Order Info: [id number] - MG Performed By: #### L 501.5200, L500.4050 #### [facility] [address] [place], [address] GAP 11 Normal 5-15 [facility] Comment on above: Order Comment: Order Date: 07/13/25 Order Info: 0786-1 - CMP Order Info: [id number] - MG Performed By: #### L 501.5200, L500.4050 #### [facility] [address] [place], [address] GFR/1.73 sq M.predicted among non-blacks MDRD (S/P/Bld) [Vol rate/Area] 81 mL/min/{1.73_m2} Normal >60 [facility] Comment on above: Order Comment: Order Date: 07/13/25 Order Info: 0786-1 - CMP Order Info: [id number] - MG Result Comment: mL/m in/1.73m2 CKD-EPI Creatinine Equation (2020) Performed By: #### L 501.5200, L500.4050 #### [facility] [address] [place], [address] Globulin (S) [Mass/Vol] 2.4 g/dL Normal 2.2-4.2 [facility] Comment on above: Order Comment: Order Date: 07/13/25 Order Info: 0786-1 - CMP Order Info: [id number] - MG Performed By: #### L 501.5200, L500.4050 #### [facility] [address] [place], [address] Glucose [Mass/Vol] 98 mg/dL Normal 70-99 [facility] Comment on above: Order Comment: Order Date: 07/13/25 Order Info: 0786-1 - CMP Order Info: [id number] - MG Performed By: #### L 501.5200, L500.4050 #### [facility] [address] [place], [address] Potassium [Moles/Vol] 4.0 mmol/L Normal 3.3-5.1 [facility] Comment on above: Order Comment: Order Date: 07/13/25 Order Info: 0786-1 - CMP Order Info: [id number] - MG Performed By: #### L 501.5200, L500.4050 #### [facility] [address] [place], [address] Sodium [Moles/Vol] 139 mmol/L Normal 133-145 [facility] Comment on above: Order Comment: Order Date: 07/13/25 Order Info: 0786-1 - CMP Order Info: [id number] - MG Performed By: #### L 501.5200, L500.4050 #### [facility] [address] [place], [address] T PROT 7.0 g/dL Normal 5.9-8.4 [facility] Comment on above: Order Comment: Order Date: 07/13/25 Order Info: 0786-1 - CMP Order Info: [id number] - MG Performed By: #### L 501.5200, L500.4050 #### [facility] [address] [place], [address] Urea nitrogen [Mass/Vol] 17 mg/dL Normal 4-19 [facility] Comment on above: Order Comment: Order Date: 07/13/25 Order Info: 0786-1 - CMP Order Info: [id number] - MG Performed By: #### L 501.5200, L500.4050 #### [facility] [address] [place], [address] Magnesiumon 07-15-2025 Magnesium [Mass/Vol] 2.2 mg/dL Normal 1.5-2.2 [facility] Comment on above: Order Comment: Order Date: 07/13/25 Order Info: 0786-1 - CMP Order Info: [id number] - MG Performed By: #### L 501.5200, L500.4050 #### [facility] [address] [place], [address] NMR Lipoprofileon 07-15-2025 CHOL TOTAL Normal [facility] Comment on above: Order Comment: Order Date: 07/13/25 Order Info: 0842-1 - NMRLIP Result Comment: CAN NOT DO TEST DUE TO [facility] Performed By: #### L 3500.0000 #### [facility] [address] [place], [address] HDL-C Normal [facility] Comment on above: Order Comment: Order Date: 07/13/25 Order Info: 0842-1 - NMRLIP Result Comment: CAN NOT DO TEST DUE TO [facility] Performed By: #### L 3500.0000 #### [facility] [address] [place], [address] HDL-P TOTAL Normal [facility] Comment on above: Order Comment: Order Date: 07/13/25 Order Info: 0842-1 - NMRLIP Result Comment: CAN NOT DO TEST DUE TO [facility] Performed By: #### L 3500.0000 #### [facility] [address] [place], [address] INS. RES. SCORE Normal [facility] Comment on above: Order Comment: Order Date: 07/13/25 Order Info: 0842-1 - NMRLIP Result Comment: CAN NOT DO TEST DUE TO [facility] Performed By: #### L 3500.0000 #### [facility] [address] [place], [address] LDL SIZE Normal [facility] Comment on above: Order Comment: Order Date: 07/13/25 Order Info: 0842-1 - NMRLIP Result Comment: CAN NOT DO TEST DUE TO [facility] Performed By: #### L 3500.0000 #### [facility] [address] [place], [address] LDL-C (NIH CALC Normal [facility] Comment on above: Order Comment: Order Date: 07/13/25 Order Info: 0842-1 - NMRLIP Result Comment: CAN NOT DO TEST DUE TO [facility] Performed By: #### L 3500.0000 #### [facility] [address] [place], [address] LDL-P Normal [facility] Comment on above: Order Comment: Order Date: 07/13/25 Order Info: 0842-1 - NMRLIP Result Comment: CAN NOT DO TEST DUE TO [facility] Performed By: #### L 3500.0000 #### [facility] [address] [place], [address] SMALL LDL-P Normal [facility] Comment on above: Order Comment: Order Date: 07/13/25 Order Info: 0842-1 - NMRLIP Result Comment: CAN NOT DO TEST DUE TO [facility] Performed By: #### L 3500.0000 #### [facility] [address] [place], [place], [address] TRIGLYCERIDES Normal [facility] Comment on above: Order Comment: Order Date: 07/13/25 Order Info: 0842-1 - NMRLIP Result Comment: CAN NOT DO TEST DUE TO [facility] Performed By: #### L 3500.0000 #### [facility] [address] [place], [address] Vitamin D,25 Hydroxyon 07-15 Vitamin D 25-OH 26.4 ng/mL Low 30-100 [facility] Comment on above: Order Comment: Order Date: 07/13/25 Order Info: 0786-1 - CMP Order Info: [id number] - MG Result Comment: Skyla min D Status Deficiency: <20 ng/mL (50nmol/L) Insufficiency: 20-30 ng/mL (50-75 nmol/L) Sufficiency: 30-100 ng/mL (75-250 nmol/L) Toxicity: >100 ng/mL (>250 nmol/L) Performed By: #### L 3410.9992, L506.1001 #### [facility] [address], [address] [facility] CHAPINCITO YU ([id number]) 1955 M Date Time Provider Department 07/07/25 [...] LPN - Fully Assessed Reason for Visit: Baggage [place] - Other [3602] Problem List As Of Date: 07/07/2025 (None) Encounter Status:Closed by KRIS ZALDIVAR on 07/07/25 Normal [facility] CBC panel Auto (Bld)on 07-06 Erythrocyte distribution width (RBC) [Ratio] 12.3 % Normal 11.5-15.0 [facility] Comment on above: Order Comment: Speci men Type: BLOOD SPECIMEN Ordering Facility: [facility] Address: [address] [place] [address] Performed By: #### 5 8410-2 #### [facility] CLIA [id number] [address] [place] [address] [place] Hematocrit (Bld) [Volume fraction] 45.0 % Normal 39.0-51.0 [facility] Comment on above: Order Comment: Speci men Type: BLOOD SPECIMEN Ordering Facility: [facility] Address: [address] [place] [address] Performed By: #### 5 8410-2 #### [facility] CLIA [id number] [address] [place] [address] [place] Hemoglobin (Bld) [Mass/Vol] 15.7 g/dL Normal 13.0-17.0 [facility] Comment on above: Order Comment: Speci men Type: BLOOD SPECIMEN Ordering Facility: [facility] Address: [address] [place] [address] Performed By: #### 5 8410-2 #### [facility] CLIA [id number] [address] [place] [address] [place] MCH (RBC) [Entitic mass] 31.5 pg Normal 26.0-34.0 [facility] Comment on above: Order Comment: Speci men Type: BLOOD SPECIMEN Ordering Facility: [facility] Address: [address] [place] [address] Performed By: #### 5 8410-2 #### [facility] CLIA [id number] [address] [place] [address] [place] MCHC (RBC) [Mass/Vol] 34.9 g/dL Normal 30.5-36.0 [facility] Comment on above: Order Comment: Speci men Type: BLOOD SPECIMEN Ordering Facility: [facility] Address: [address] [place] [address] Performed By: #### 5 8410-2 #### [facility] CLIA [id number] [address] [place] [address] [place] MCV (RBC) [Entitic vol] 90.4 fL Normal 80.0-100.0 [facility] Comment on above: Order Comment: Speci men Type: BLOOD SPECIMEN Ordering Facility: [facility] Address: [address] [place] [address] Performed By: #### 5 8410-2 #### [facility] CLIA [id number] [address] [place] [address] [place] Nucleated RBC (Bld) [#/Vol] 10*3/uL Normal <0.01 [facility] Comment on above: Order Comment: Speci men Type: BLOOD SPECIMEN Ordering Facility: [facility] Address: [address] [place] [address] Performed By: #### 5 8410-2 #### [facility] CLIA [id number] [address] [place] [address] [place] Platelet mean volume (Bld) [Entitic vol] 11.3 fL Normal 9.0-12.7 [facility] Comment on above: Order Comment: Speci men Type: BLOOD SPECIMEN Ordering Facility: [facility] Address: [address] [place] [address] Performed By: #### 5 8410-2 #### [facility] CLIA [id number] [address] [place] [address] [place] Platelets (Bld) [#/Vol] 235 10*3/uL Normal 150-400 [facility] Comment on above: Order Comment: Speci men Type: BLOOD SPECIMEN Ordering Facility: [facility] Address: [address] [place] [address] Performed By: #### 5 8410-2 #### [facility] CLIA [id number] [address] [place] [address] [place] RBC (Bld) [#/Vol] 4.98 10*6/uL Normal 4.20-6.00 [facility] Comment on above: Order Comment: Speci men Type: BLOOD SPECIMEN Ordering Facility: [facility] Address: [address] [place] [address] Performed By: #### 5 8410-2 #### [facility] CLIA [id number] [address] [place] [address] [place] WBC (Bld) [#/Vol] 7.07 10*3/uL Normal 3.70-11.00 [facility] Comment on above: Order Comment: Speci men Type: BLOOD SPECIMEN Ordering Facility: [facility] Address: [address] [place] [address] Performed By: #### 5 8410-2 #### [facility] CLIA [id number] [address] [place] [address] [place] CNOVon 07-06-2025 CNOV Office Visit (GASTA5 ) GIGICHAPINCITO Micaela ([id number]) 1955 M Date Time Provider Department 07/06/25 [...] tests. - Check in with me via [employer] in 7-10 days to confirm that the radiologist has reviewed your CT scan and to discuss your blood test results. - There is no need for additional imaging unless new symptoms arise. If you have any questions or concerns, please reach out through [employer]. Aleksander Guevara MD 07/06/2025 4:58 PM Signed What is the future like in light of liver cysts? The patient is a 69-year-old male presenting for initial evaluation of multiple hepatic cysts and steatotic liver disease, incidentally discovered on imaging. He first became aware of liver cysts in 2019 after a screening scan in [place], which noted ?some cysts? on the liver. [...] renal cy (more content not included)... Normal [facility] Comprehensive metabolic 2000 panelon 07-06-2025 Albumin [Mass/Vol] 4.8 g/dL Normal 3.9-4.9 [facility] Comment on above: Order Comment: Sam arana Type: BLOOD SPECIMEN Ordering Facility: [facility] Address: [address] [place] [address] Performed By: #### 2 4323-8 #### [facility] CLIA [id number] [address] [place] [address] [place] ALP [Catalytic activity/Vol] 55 U/L Normal 38-113 [facility] Comment on above: Order Comment: Sam arana Type: BLOOD SPECIMEN Ordering Facility: [facility] Address: [address] [place] [address] Performed By: #### 2 4323-8 #### [facility] CLIA [id number] [address] [place] [address] [place] ALT [Catalytic activity/Vol] 14 U/L Normal 10-54 [facility] Comment on above: Order Comment: Sam arana Type: BLOOD SPECIMEN Ordering Facility: [facility] Address: [address] [place] [address] Performed By: #### 2 4323-8 #### [facility] CLIA [id number] [address] [place] [address] [place] Anion gap [Moles/Vol] 13 mmol/L Normal 8-15 [facility] Comment on above: Order Comment: Speci men Type: BLOOD SPECIMEN Ordering Facility: [facility] Address: [address] [place], [place] [address] Performed By: #### 2 4323-8 #### [facility] CLIA [id number] [address] [place], [place] [address] [place] AST [Catalytic activity/Vol] 20 U/L Normal 14-40 [facility] Comment on above: Order Comment: Speci men Type: BLOOD SPECIMEN Ordering Facility: [facility] Address: [address] [place], [place] [address] Performed By: #### 2 4323-8 #### [facility] CLIA [id number] [address] [place] [address] [place] Bilirubin [Mass/Vol] 0.6 mg/dL Normal 0.2-1.3 [facility] Comment on above: Order Comment: Speci men Type: BLOOD SPECIMEN Ordering Facility: [facility] Address: [address] [place] [address] Performed By: #### 2 4323-8 #### [facility] CLIA [id number] [address] [place] [address] [place] Calcium [Mass/Vol] 10.0 mg/dL Normal 8.5-10.2 [facility] Comment on above: Order Comment: Speci men Type: BLOOD SPECIMEN Ordering Facility: [facility] Address: [address] [place], [place] [address] Performed By: #### 2 4323-8 #### [facility] CLIA [id number] [address] [place], [place] [address] [place] Chloride [Moles/Vol] 104 mmol/L Normal 98-107 [facility] Comment on above: Order Comment: Speci men Type: BLOOD SPECIMEN Ordering Facility: [facility] Address: [address] [place], [place] [address] Performed By: #### 2 4323-8 #### [facility] CLIA [id number] [address] [place] [id number] [place] CO2 [Moles/Vol] 23 mmol/L Normal 22-30 [facility] Comment on above: Order Comment: Speci men Type: BLOOD SPECIMEN Ordering Facility: [facility] Address: [address] [place] [address] Performed By: #### 2 4323-8 #### [facility] CLIA [id number] [address] [place] [address] [place] Creatinine [Mass/Vol] 0.98 mg/dL Normal 0.73-1.22 [facility] Comment on above: Order Comment: Speci men Type: BLOOD SPECIMEN Ordering Facility: [facility] Address: [address] [place] [address] Performed By: #### 2 4323-8 #### [facility] [place] [id number] [address] [place] [address] [place] eGFRcr SerPlBld CKD-EPI 2020 83 mL/min/1.73m??? Normal >=60 [facility] Comment on above: Order Comment: Speci men Type: BLOOD SPECIMEN Ordering Facility: [facility] Address: [address] [place] [address] Result Comment: Bobbi mated Glomerular Filtration Rate [...] GFR. Performed By: #### 2 4323-8 #### [facility] IA [id number] [address] [place] [address] [place] Glucose [Mass/Vol] 99 mg/dL Normal 74-99 [facility] Comment on above: Order Comment: Speci men Type: BLOOD SPECIMEN Ordering Facility: [facility] Address: [address] [place] [address] Result Comment: The [place] [employer] (ADA) provides guidance for cutoff [...] Standards of Medical Care in Diabetes 2016, [place] [employer]. Diabetes Care. 2016.39(Suppl 1). Performed By: #### 2 4323-8 #### [facility] CLIA [id number] [address] [place] [address] [place] Potassium [Moles/Vol] 4.6 mmol/L Normal 3.7-5.1 [facility] Comment on above: Order Comment: Speci men Type: BLOOD SPECIMEN Ordering Facility: [facility] Address: [address] [place] [address] Performed By: #### 2 4323-8 #### [facility] CLIA [id number] [address] [place] [address] [place] Protein [Mass/Vol] 7.4 g/dL Normal 6.3-8.0 [facility] Comment on above: Order Comment: Speci men Type: BLOOD SPECIMEN Ordering Facility: [facility] Address: [address] [place] [address] Performed By: #### 2 4323-8 #### [facility] CLIA [id number] [address] [place] [address] [place] Sodium [Moles/Vol] 140 mmol/L Normal 136-144 [facility] Comment on above: Order Comment: Speci men Type: BLOOD SPECIMEN Ordering Facility: [facility] Address: [address] [place] [address] Performed By: #### 2 4323-8 #### [facility] CLIA [id number] [address] [place] [address] [place] Urea nitrogen [Mass/Vol] 15 mg/dL Normal 9-24 [facility] Comment on above: Order Comment: Sam arana Type: BLOOD SPECIMEN Ordering Facility: [facility] Address: [address] [place] [address] Performed By: #### 2 4323-8 #### [facility] CLIA [id number] [address] [place] [address] [place] PT panel Coag (PPP)on 2024 INR Coag (PPP) [Relative time] 1.0 {INR} Normal 0.9-1.3 [facility] Comment on above: Order Comment: Shiloi yasmeen Type: BLOOD SPECIMEN Ordering Facility: [facility] Address: [address] [place] [address] Result Comment: Skyla min K Antagonist (VKA) Therapeutic Range: INR 2 to 3 (Target INR of 2.5) Note: For patients treated with VKA drugs, such as warfarin, the [place] [employer] 2012 Guideline recommends [...] [phone] Performed By: #### 3 4528-0 #### [facility] CLIA [id number] [address] [place] [address] [place] PT Coag (PPP) [Time] 11.0 s Normal 9.7-13.0 [facility] Comment on above: Order Comment: Speci men Type: BLOOD SPECIMEN Ordering Facility: [facility] Address: [address] [place] [address] Performed By: #### 3 [id number] #### [facility] CLIA [id number] [address] [place] [address] [place] [address] [place] [facility] Coronary Angiography CTon Coronary Angiography CT [facility] Imaging Services [address] [place] [address] 07/05/25 1034 MR#: [id number] Acct: [id number] Name: CHAPINCITO YU Rep #: [id number] : 1955 69 From: Enrique Bianchi MD [...] MD; Dr. Enrique Bianchi MD Signed Normal [facility] Limited Chest CT Cardiac Onl yon 07-02-[address] Cardiac Only [facility] Imaging Services [address] [place] [id number] Cardiac Only MR#: [id number] Acct: [id number] Name: CHAPINCITO YU Rep #: [id number] : 1955 M 69 From: Erasmo Hinojosa PCP: Dr. Edil Trevino MD Status: REG REF Study: Limited Chest CT Cardiac Only Date of Exam: Exam# [id number] Ordering Dr: Edil Trevino PROCEDURE: LIMITED CHEST [...] of the liver demonstrates numerous hepatic cysts. [id number] thoracic aortic calcification seen. Limited imaging of the lungs demonstrates no acute process. No pleural effusion or pneumothorax is seen in visualized areas. No adenopathy is noted. The visualized upper abdomen demonstrates no other significant abnormality. Reading Location: [place] [address] CC: Dr. Edil Trevino MD [employer] Architect: Signed Normal [facility] Abdomen WITH IV Contraston 0 10-15-2024 Abdomen WITH IV Contrast [facility] Imaging Services [address] [place] [id number] Abdomen WITH IV Contrast MR#: [id number] Acct: [id number] Name: CHAPINCITO YU Rep #: [id number] : 1955 M 68 From: Kash escobedo MD PCP: Dr. Edil Trevino MD Status: REG CLI Study: Abdomen WITH IV Contrast Date of Exam: 5 Exam# [id number] Ordering Dr: Edil Trevino D [id number] STUDY: CT ABDOMEN WITH CONTRAST REASON FOR [...] EST , CC: Dr. Edil Trevino MD [employer] Architect: Signed Normal [facility] Abdomen Limitedon 09-19-2024 Abdomen Limited [facility] Imaging Services [address] [place], [place] [address] Abdomen Limited MR#: [id number] Acct: [id number] Name: CHAPINCITO YU Rep #: [id number] : 1955 68 From: Danielito lynn MD PCP: Dr. Edil Trevino MD Status: [facility] Study: Abdomen Limited Date of Exam: 09/19/24 Exam# [id number] Ordering Dr: Edil Trevino [id number] STUDY: ABDOMINAL ULTRASOUND - RIGHT UPPER QUADRANT [...] EST , CC: Dr. Edil Trevino MD [employer] Architect: Signed Normal [facility] Encounters Encounter Date Encounter Type Care Provider Facility Start: 08-11-2025 ambulatory Edil Wahl lity:[facility] Start: 07-15-2025 End: 07-15-2025 ambulatory Edil Trevino Facility:[facility] Start: 07-06-2025 End: 07-06-2025 [facility] Facility:[facility] Start: 07-06-2025 End: 07-06-2025 [facility] Facility:[facility] Start: 07-02-2025 ambulatory Edil Trevino Faci lity:[facility] Start: 05-10-2025 End: 05-10-2025 Transcribe Orders Edil Trevino MD Work Phone: Referring Physician Comment on above: Polycystic liver dis ease (Primary Dx) Start: 10-15-2024 End: 10-15-2024 [facility]ulatory [facility] Facility:[facility] Start: 09-19-2024 End: 09-19-2024 ambulatory [facility] Plan of Treatment Date Care Activity Detail Author Start: 2030 RSV Vaccine (1 - 1-d ose 75+ series) RSV Vaccine (1 - 1-dose 75+ series) [facility] Start: 05-31-2025 Influenza vaccination Influenza Vacc ine (#1) [facility] Start: 09-30-2024 Advance Directive Discussion Advance Directive Discussion [facility] Start: 2005 Pneumococcal Vaccine : 50+ (1 of 1 - PCV) Pneumococcal Vaccine: 50+ (1 of 1 - PCV) [facility] Start: 2005 Shingrix Vaccine (1 of 2) Shingrix V accine (1 of 2) [facility] Start: 2000 Diabetes Screening Diabetes Screenin g [facility] Start: 2000 Screening for malign ant neoplasm of colon [facility] Start: 1990 Lipid panel Lipid Screening [facility] Start: 1974 Urine microalbumin profile DTaP,Tdap,Td Vaccine (1 - Tdap) [facility] Start: 1973 Anxiety Screening Anxiety Screening [facility] Start: 1973 Depression Screening Depression Scre ening [facility] Start: 1973 Hepatitis C screening Hepatitis C Co hernandez [facility] Payers Date Payer Category Payer Self-pay [id number] 2024 Unknown [id number] 2020 Medicare [id number] Unknown [id number] 2.16.8 [id number] Unknown [id number] 2.16.8 [id number] Unknown [id number] 2.16.8 [id number] Unknown [id number] 2.16.8 [id number] Unknown [id number] 2.16.8 [id number] Social History Date Type Detail [facility] Work Phone: Start: 1955 Sex Assigned At Male [facility] Work Phone: Tobacco smoking stat [facility] Never smoked tobacco [facility] Start: 08-24-2008 Alcoholic beverage intake Current drinker of alcohol (finding) [facility] Start: 1955 Sex assigned at Not on file [facility] Start: 08-31-2012 Sex Male [facility] Gender identity Not on file [facility] inic Progress note 07-06-2025 Note Date & Type Note Facility 07-06-2025 Note HNO ID: [id number] Author: ALEKSANDER GUEVARA MD Service: ? Author Type: Physician Type: Progress Notes Filed: 07/06/2025 16:58 Note Text: What is the future like in light of liver cysts? The patient is a 69-year-old male presenting for initial evaluation of multiple hepatic cysts and steatotic liver disease, incidentally discovered on imaging. He first became aware of liver cysts in 2019 after a screening scan in [place], which noted ?some cysts? on the liver. [...] 1975 Tonsillectomy REPAIR SLIDING INGUINAL HERNIA 08/16/08 [facility] REPAIR UMBILICAL RALPH,5+Y/O,REDUC 2006 Hernia repair, umbilical [...] standard liver function tests. - [facility] to confirm completion [...] indicated at this time. 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 [employer] provides no warranty or guarantee of the accuracy or completeness of information in this document.
[2025-09-01 10:22] LABS: Hematocrit 45.8 % (40-54); Hemoglobin 15.6 g/dL (13.0-16.5); Immature Granulocytes Count 0.010 X10^3/uL (0.0-0.0); Mean Corp Hgb Conc 34.1 g/dL (32-36); Mean Corpuscular Volume 91.6 fL (80-94); Mean Platelet Vol. 11.5 fl (6.2-12.0); NRBC Flagged by Analyzer 0 % (0-5); Platelet Count 214 K/mm3 (150-450); RBC Distribution Width CV 12.2 % (11.6-14.6); RBC Distribution Width SD 41.1 fl (35.1-43.9); Red Blood Count 5.00 M/mm3 (4.6-6.2); White Blood Count 7.5 K/mm3 (4.4-11.0)
[2025-09-01 11:21] LABS: Cholesterol 125 mg/dL (<=200); Low Density Lipoprotein Calc. 66 mg/dL; PSA,Total - Annual Screen 1.80 ng/mL (0.02-4.00); Triglycerides 83 mg/dL; Very Low Density Lipoprotein 17 mg/dL (5-40); Vitamin B12 594 pg/mL (180-914); cholesterol:hdl ratio screen 2.93
[2025-09-02 08:09] LABS: HOMOCYSTEINE 16.4 umol/L (0.0-17.2)
== END | disposition home or self-care (01) ==
PROVIDERS: PCP Family Medicine; Referring Provider Family Medicine; Visit Provider Family Medicine
DX: Z13.1 Encounter for screening for diabetes mellitus (principal); Z12.5 Encounter for screening for malignant neoplasm of prostate; I10 Essential (primary) hypertension; I25.10 Atherosclerotic heart disease of native coronary artery without angina pectoris; R53.83 Other fatigue
CPT/HCPCS: 80061; 82607; 83036; 83090; 84153; 84403; 84443; 85025; 85652; G0103